=== PATIENT | female | born 1960 | race Caucasian/White ===

== ENCOUNTER 2016-07-07 20:45 | Inpatient (IN) | payer OTHER ==
[~2016-07-07] VITALS: Ht 261.6 cm; Wt 71.3 kg
[~2016-07-07 20:45] MED LIST: ALBU0.08 NEB; AMBI10TA PO; ATEN25TA PO; ATOR40TA16 PO; BUSP10TA PO; CYCL1TAB29 PO; DICL1GEL TOPICAL; DIVA250T PO; DULO1CAP2 PO; GABA300C5 PO; HYDR-3366 PO; LEVO88TA2 PO; OMEP20TA PO; POTA10TA8 PO; ROPI0.5T PO; TOPI1TAB31 PO; VENTAER INH
[2016-07-07 20:48] VITALS: BP 113/82; PULSE 89; RESP 18; TEMP 97.7; O2SAT 96
[2016-07-07 20:50] VITALS: BP_SYST 113; BP_SYST 121; BP_DIAS 80; BP_DIAS 82
[2016-07-07 20:57] VITALS: RESP 18; O2SAT 97
[2016-07-07] MEDS ORDERED: SODIUM CHLORIDE 0.9% FLUSH 5 ML FLUSH IVF PRN ×3 (21:00→23:45)
--- NOTE | 2016-07-07 21:07 | PD ---
HPI Chief Complaint: Chest Pain Time Seen by Provider: 20:52 Travel History International Travel<30 days: No Contact w/Intl Traveler<30days: No Traveled to known affect area: No History of Present Illness HPI 56-year-old female presents to the emergency department by EMS transport from home for evaluation of chest pain and possible seizure. According the patient is able to relate most of her own history she does have a seizure disorder but this evening prior to arrival to the emergency department she was experiencing retrosternal chest pressure 9/10 in intensity nonradiating to the neck jaw back shoulder or arms or abdomen without associated nausea vomiting sweats or shortness of breath. Patient states that because of the discomfort she had decided to go and lay down on her bed and noted that upon resting she started to have some tremor typical of seizure activity for her and then reports that she found herself laying facedown on the carpeted floor in her room next to her bed with her turning her over onto her back. Patient did not have any tongue trauma and had no bladder or bowel incontinence. Patient states that she was able to recognize her but was not able to be conversant for approximately 15-20 minutes. Upon EMS arrival due to her ongoing chest discomfort aspirin 162 mg was administered along with nitroglycerin sublingual sprays 2 which has decreased her chest discomfort to 6/10 in intensity. Patient does not complain of any headache visual disturbance speech disturbance has chronic neck pain and is scheduled to have outpatient MRI in the near future no shortness of breath no chest wall pain no rib pain or pleuritic pain no abdominal pain no upper or lower back pain no pelvic or extremity pain at this time; no new upper or lower extremity numbness tingling or weakness. Patient denies previous history of chest pain. Patient does have history of CVA with mild right upper extremity and right lower extremity residual weakness 2 years ago and uses a cane to assist ambulation, seizure disorder, hypertension , COPD, hypothyroidism, chronic pain syndrome, bipolar disorder, and migraines. PFSH Past Medical History Narrative Medical CVA, seizure disorder, hypertension, COPD, hypothyroidism, chronic pain syndrome , bipolar disorder, migraines; hysterectomy tonsillectomy; tobacco use; nursing notes reviewed Hx Anticoagulant Therapy: Yes (ASA) Arthritis: Yes Asthma: Yes Autoimmune Disease: No Bipolar Disorder: Yes Anxiety: Yes Depression: Yes Heart Rhythm Problems: No Cancer: No Cardiovascular Problems: Yes High Cholesterol: No Chemotherapy: No Chest Pain: No Congestive Heart Failure: No COPD: Yes Cerebrovascular Accident: Yes Diabetes: No Diminished Hearing: No Endocrine: No GERD: No Genitourinary: No Headaches: Yes Hepatitis: No Hiatal Hernia: No Herniated Disk: Yes Hypertension: Yes Immune Disorder: No Insomnia: Yes Kidney Stones: No Musculoskeletal: Yes (spasms in legs) Neurologic: Yes (SEIZURES, NUMBNESS IN FINGERS AND R LEG ) Psychiatric: Yes Reproductive: No Respiratory: Yes Migraines: Yes Radiation Therapy: No Renal Failure: No Seizures: Yes (Currently taking tegretol) Sickle Cell Disease: No Sleep Apnea: Yes Thyroid Disease: Yes Ulcer: No ?: Not : 5 Para: 5 Past Surgical History Abdominal Surgery: No AICD: No Arteriovenous Shunt: No Cardiac Surgery: No Ear Surgery: No Endocrine Surgery: No Eye Surgery: No Genitourinary Surgery: No Gynecologic Surgery: Yes Hysterectomy: Yes Insulin Pump: No Joint Replacement: No Pacemaker: No Thoracic Surgery: No Tonsillectomy: Yes Other Surgery: Yes (Hysterectomy - 27 years ago) Social History Alcohol Use: No Tobacco Use: Yes (1PPD) Substance Use: Yes Allergies-Medications (Allergen,Severity, Reaction): Coded Allergies: No Known Allergies (Unverified , 07/07/16) Reported Meds & Prescriptions Reported Meds & Active Scripts Active Buspirone (Buspirone HCl) 10 Mg Tab 10 Mg PO BID Duloxetine DR (Duloxetine HCl) 30 Mg Capdr 30 Mg PO BID Atenolol 25 Mg Tab 25 Mg PO DAILY Gabapentin 300 Mg Cap 300 Mg PO TID Levothyroxine (Levothyroxine Sodium) 88 Mcg Tab 88 Mcg PO DAILY Ambien (Zolpidem Tartrate) 10 Mg Tab 10 Mg PO HS PRN Omeprazole 20 Mg Tab 20 Mg PO DAILY Flexeril (Cyclobenzaprine HCl) 10 Mg Tab 10 Mg PO TID Voltaren Topical (Diclofenac Topical) 1% Gel 1 Applic TOPICAL TID Apply to affected area Atorvastatin (Atorvastatin Calcium) 40 Mg Tab 40 Mg PO HS Ventolin Hfa 18 GM Inh (Albuterol Sulfate) 90 Mcg/Act Aer 2 Puff INH Q4-6H PRN Albuterol Neb (Albuterol Sulfate) 2.5 Mg/3 Ml Neb 2.5 Mg NEB QID NEB Reported Diclofenac Topical 1% Gel 1 Applic TOPICAL BID Divalproex DR (Divalproex Sodium) 250 Mg Tabdr 250 Mg PO TID Topiramate 100 Mg Tab 100 Mg PO BID Ropinirole 0.5 Mg Tab 0.5 Mg PO TID Potassium Chloride CR (Potassium Chloride) 10 Meq Tab 20 Meq PO DAILY Bittinger (Hydrocodone-Acetaminophen) 10-325 Mg Tab 1 Tab PO TID PRN Review of Systems Except as stated in HPI: all other systems reviewed are Neg General / Constitutional: No: Fever, Chills Eyes: No: Visual changes HENT: Positive: Neck Pain (chronic), No: Headaches Cardiovascular: Positive: Chest Pain or Discomfort, Syncope, No: Diaphoresis, Edema Respiratory: No: Shortness of Breath, Pleuritic Pain Gastrointestinal: No: Nausea, Vomiting, Abdominal Pain Genitourinary: No: Flank Pain Musculoskeletal: No: Myalgias, Arthralgias Skin: No Rash Neurologic: Positive: Weakness, Syncope, Focal Abnormalities (chronic mild rue/ rle weakness, cane use), Seizures, No: Dizziness, Headache, Change in Mentation , Slurred Speech, Paresthesia, Incontinence Psychiatric: No: Anxiety Endocrine: No: Heat Intolerance Hematologic/Lymphatic: No: Easy Bruising Physical Exam Narrative GENERAL: Well-developed well-nourished female in acute distress no respiratory distress SKIN: Warm and dry. HEAD: Atraumatic. Normocephalic. Scalp nontender to direct palpation no soft tissue swelling or abrasion laceration or bony abnormalities. EYES: Pupils equal and round. No scleral icterus. No injection or drainage. ENT: No nasal bleeding or discharge. Mucous membranes pink and moist. NECK: Trachea midline. No JVD. Mild tenderness to direct palpation along the right para cervical musculature no point tenderness to direct palpation along the cervical spine no bony step-off. CARDIOVASCULAR: Regular rate and rhythm. RESPIRATORY: No accessory muscle use. Clear to auscultation. Breath sounds equal bilaterally. GASTROINTESTINAL: Abdomen soft, non-tender, nondistended. Hepatic and splenic margins not palpable. MUSCULOSKELETAL: Extremities without clubbing, cyanosis, or edema. No obvious deformities. NEUROLOGICAL: Awake and alert. No obvious cranial nerve deficits. Motor grossly within normal limits. Five out of 5 muscle strength in the arms and legs. Normal speech. PSYCHIATRIC: Appropriate mood and affect; insight and judgment normal. Data Data Last Documented VS Vital Signs Date Time Temp Pulse Resp B/P Pulse Ox O2 Delivery O2 Flow Rate FiO2 07/07/16 22:00 70 18 124/79 96 Room Air 07/07/16 20:48 97.7 Orders Electrocardiogram (07/07/16 20:52) Ckmb (Isoenzyme) Profile (07/07/16 20:52) Complete Blood Count With Diff (07/07/16 20:52) Comprehensive Metabolic Panel (07/07/16 20:52) Magnesium (Mg) (07/07/16 20:52) Prothrombin Time / Inr (Pt) (07/07/16 20:52) Act Partial Throm Time (Ptt) (07/07/16 20:52) Troponin I (07/07/16 20:52) Lipase (07/07/16 20:52) Chest, Single Ap (07/07/16 20:52) Ecg Monitoring (07/07/16 20:52) Bilateral Bp Monitoring (07/07/16 20:52) Iv Access Insert/Monitor (07/07/16 20:52) Oximetry (07/07/16 20:52) Oxygen Administration (07/07/16 20:52) Sodium Chloride 0.9% Flush (Ns Flush) (07/07/16 21:00) Ct Brain W/O Iv Contrast(Rout) (07/07/16 ) Ct Cerv Spine W/O Contrast (07/07/16 ) Valproic Acid (Depakene) (07/07/16 20:52) ^ Seizure Precautions (07/07/16 20:52) Nitroglycerin Sl (Nitrostat Sl) (07/07/16 22:00) Morphine Inj (Morphine Inj) (07/07/16 22:00) Ondansetron Inj (Zofran Inj) (07/07/16 22:00) Sodium Chlorid 0.9% 500 Ml Inj (Ns 500 M (07/07/16 22:00) Sodium Chlor 0.9% 1000 Ml Inj (Ns 1000 M (07/07/16 22:00) Acetaminophen (Tylenol) (07/07/16 22:00) CKMB (07/07/16 20:55) CKMB% (07/07/16 20:55) Labs Laboratory Tests Test 07/07/16 20:55 White Blood Count 10.1 TH/MM3 Red Blood Count 4.03 MIL/MM3 Hemoglobin 13.1 GM/DL Hematocrit 38.4 % Mean Corpuscular Volume 95.4 FL Mean Corpuscular Hemoglobin 32.5 PG Mean Corpuscular Hemoglobin 34.1 % Concent Red Cell Distribution Width 13.7 % Platelet Count 317 TH/MM3 Mean Platelet Volume 9.5 FL Neutrophils (%) (Auto) 44.2 % Lymphocytes (%) (Auto) 45.0 % Monocytes (%) (Auto) 8.3 % Eosinophils (%) (Auto) 1.7 % Basophils (%) (Auto) 0.8 % Neutrophils # (Auto) 4.5 TH/MM3 Lymphocytes # (Auto) 4.5 TH/MM3 Monocytes # (Auto) 0.8 TH/MM3 Eosinophils # (Auto) 0.2 TH/MM3 Basophils # (Auto) 0.1 TH/MM3 CBC Comment DIFF FINAL Differential Comment Prothrombin Time 10.2 SEC Prothromb Time International 0.9 RATIO Ratio Activated Partial 28.3 SEC Thromboplast Time Sodium Level 139 MEQ/L Potassium Level 3.7 MEQ/L Chloride Level 107 MEQ/L Carbon Dioxide Level 23.8 MEQ/L Anion Gap 8 MEQ/L Blood Urea Nitrogen 11 MG/DL Creatinine 0.80 MG/DL Estimat Glomerular Filtration 74 ML/MIN Rate Random Glucose 84 MG/DL Calcium Level 8.7 MG/DL Magnesium Level 2.2 MG/DL Total Bilirubin 0.2 MG/DL Aspartate Amino Transf 13 U/L (AST/SGOT) Alanine Aminotransferase 19 U/L (ALT/SGPT) Alkaline Phosphatase 80 U/L Total Creatine Kinase 148 U/L Creatine Kinase MB 2.6 NG/ML Troponin I LESS THAN 0.02 NG/ML Total Protein 7.9 GM/DL Albumin 3.7 GM/DL Lipase 148 U/L Valproic Acid (Depakene) Level 39 MCG/ML MDM Medical Decision Making Medical Screen Exam Complete: Yes Emergency Medical Condition: Yes Medical Record Reviewed: Yes Interpretation(s) EKG: EKG: Normal sinus rhythm rate [address] elevation or injury pattern change nonspecific T-wave inversion V1-V2 Differential Diagnosis Chest pain, ACS, ND, musculoskeletal pain, pleurisy, esophageal spasm, biliary colic, pancreatitis, PE, arrhythmia, electronic disturbance, subtherapeutic anticonvulsant therapy Narrative Course Patient placed on cardiac monitor technician IV access obtained specimens collected and sent for resulting patient has received to supplement will nitroglycerin sprays and aspirin 162 mg Patient administered additional sublingual nitroglycerin as well as Zofran 4 mg IV along with morphine sulfate 2 mg IV Patient complains of migrainous type headache patient does have history of migraines was having headache prior to onset aforementioned symptoms of presentation and patient administered acetaminophen At 9:50 PM patient's spouse is at bedside he was at home with the patient this evening when chest pain and syncopal episode occurred. did not witness patient having any seizure activity. did note that she had been away from him for approximately 5 minutes after arriving home with complaint of retrosternal chest pressure and found the patient on the floor at the bedside facedown. No seizure activity was occurring at the time. When he rolled her over she was reportedly unresponsive and he thought that she was not breathing so started to administer [id number] resuscitation and chest compressions. Patient states he did this for short while EMS was called and upon EMS arrival patient was just starting to awaken and talk but had not had any verbal communication or did not appear to recognize them prior to this. At 10:37 PM labs resulted CK and troponin I values not elevated; valproic acid level is subtherapeutic at 37; patient given evening dose of her Topamax and valproic acid. Physician Communication Physician Communication call placed to Diagnosis Primary Impression: Chest pain Additional Impressions: Syncope Qualified Code: R55 - Syncope, unspecified syncope type H/O tonic-clonic seizures Admitting Information Admitting Physician Requests: Admit Nery Loya MD Jul 07, 2016 21:07
[2016-07-07] MEDS ORDERED: DICL1GEL7 TOPICAL (21:39)
[2016-07-07 21:52] LABS: AUTOMATED NEUTROPHIL # 4.5 TH/MM3 (1.8-7.7); BASOPHIL # 0.1 TH/MM3 (0-0.2); BASOPHIL % 0.8 % (0.0-2.0); EOSINOPHIL # 0.2 TH/MM3 (0-0.4); EOSINOPHIL % 1.7 % (0.0-4.0); HEMATOCRIT 38.4 % (35.0-46.0); HEMO FLAGS DIFF FINAL; LYMPHOCYTE # 4.5 TH/MM3 (1.0-4.8); MEAN CELL VOLUME 95.4 FL (80.0-100.0); MEAN CORPUSCULAR HEMOGLOBIN 32.5 PG (27.0-34.0); MEAN CORPUSCULAR HGB CONC 34.1 % (32.0-36.0); MONO % 8.3 % (0.0-8.0); NEUT % 44.2 % (16.0-70.0); PLATELET COUNT 317 TH/MM3 (150-450); RED BLOOD COUNT 4.03 MIL/MM3 (4.00-5.30); RED CELL DISTRIBUTION WIDTH 13.7 % (11.6-17.2); WHITE BLOOD COUNT 10.1 TH/MM3 (4.0-11.0)
--- NOTE | 2016-07-07 21:59 | RADRPT ---
EXAM DATE/TIME: 07/07/2016 21:22 [facility] COMPARISON: CT BRAIN W/O CONTRAST, September 22, 2015, 22:02. INDICATIONS : Seizure along with fall. RADIATION DOSE: 56.35 CTDIvol (mGy) MEDICAL HISTORY : Seizures. SURGICAL HISTORY : None. ENCOUNTER: Initial ACUITY: 1 day PAIN SCALE: 3/10 LOCATION: cranial TECHNIQUE: Multiple contiguous axial images were obtained of the head. Using automated exposure control and adj ustment of the mA and/or kV according to patient size, radiation dose was kept as low as reasonably a chievable to obtain optimal diagnostic quality images. FINDINGS: There is no evidence for intracranial hemorrhage, mass effect, mass lesions, edema, or extra-axial fl uid collections. The visualized bony structures appear intact. The ventricles are normal size for t he patient's age. There are no signs of acute infarction for technique. CONCLUSION: Unremarkable study. Becky Gaines MD on July 07, 2016 at 21:56 Board Certified Radiologist. This report was verified electronically.
[2016-07-07 22:00] VITALS: BP 124/79; PULSE 70; RESP 18; O2SAT 96
[2016-07-07] MEDS ORDERED: SODIUM CHLORID 0.9% 500 ML INJ 500 ML IV ONE (22:00)
[2016-07-07] MEDS ORDERED: NITROGLYCERIN 0.4 MG SL 25 TABS/BTL SL ONE (22:00)
[2016-07-07] MEDS ORDERED: MORPHINE SULFATE 4 MG/ML INJ IV PUSH ONE (22:00)
[2016-07-07] MEDS ORDERED: ONDANSETRON HCL 4 MG/2 ML VIAL IV PUSH ONE (22:00)
[2016-07-07] MEDS ORDERED: ACETAMINOPHEN 325 MG TAB PO ONE (22:00)
[2016-07-07 22:01] LABS: APTT (PATIENT) 28.3 SEC (24.3-30.1); INTERNATIONAL NORMALIZED RATIO 0.9 RATIO; PROTHROMBIN TIME - PATIENT 10.2 SEC (9.8-11.6)
--- NOTE | 2016-07-07 22:02 | RADRPT ---
EXAM DATE/TIME: 07/07/2016 21:24 [facility] COMPARISON: No previous studies available for comparison. INDICATIONS : Seizure along with fall. RADIATION DOSE: 32.07 CTDIvol (mGy) MEDICAL HISTORY : Seizures. SURGICAL HISTORY : None. ENCOUNTER: Initial ACUITY: 1 day PAIN SCALE: 3/10 LOCATION: neck TECHNIQUE: Volumetric scanning of the cervical spine was performed. Multiplanar reconstructions in the sagittal, coronal and oblique axial planes were performed. Using automated exposure control and adjustment o f the mA and/or kV according to patient size, radiation dose was kept as low as reasonably achievable to obtain optimal diagnostic quality images. FINDINGS: No significant subluxation or soft tissue swelling is seen. No definite fracture is seen for techniqu e. C2-C3: No appreciable compromised to the thecal sac, exiting nerve roots are seen. The neural yolis ntaan are patent bilaterally. No appreciable thecal sac stenosis is seen. C3-C4: There is slight neural foramina compromise on the left due to asymmetrical bulging disc and h ypertrophic changes. C4-C5: Mild central disc protrusion is present without any significant compromise to the thecal sac or the exiting nerve roots. C5-C6: No appreciable compromised to the thecal sac, exiting nerve roots are seen. The neural yolis natan are patent bilaterally. No appreciable thecal sac stenosis is seen. C6-C7: No appreciable compromised to the thecal sac, exiting nerve roots are seen. The neural yolis natan are patent bilaterally. No appreciable thecal sac stenosis is seen. C7-T1: No appreciable compromised to the thecal sac, exiting nerve roots are seen. The neural yolis natan are patent bilaterally. No appreciable thecal sac stenosis is seen CONCLUSION: Slight neural foramina compromise left C3-4. KEmma Gaines MD on July 07, 2016 at 21:57 Board Certified Radiologist. This report was verified electronically.
--- NOTE | 2016-07-07 22:06 | RADRPT ---
EXAM DATE/TIME: 07/07/2016 21:39 [facility] COMPARISON: CHEST PA & LAT, November 27, 2013, 8:34. INDICATIONS : Patient had a seizure this afternoon. She also was having chest pain. MEDICAL HISTORY : Hypertension. Chronic obstructive pulmonary disease. Asthma. SURGICAL HISTORY : None. ENCOUNTER: Initial ACUITY: 1 day PAIN SCORE: 0/10 LOCATION: chest FINDINGS: The lungs are clear without infiltrate, nodule, or mass. There is no appreciable pleural effusion fo r technique. Heart and mediastinum are unremarkable. CONCLUSION: No acute cardiopulmonary disease. Becky Gaines MD on July 07, 2016 at 22:04 Board Certified Radiologist. This report was verified electronically.
[2016-07-07 22:21] LABS: ANION GAP 8 MEQ/L (5-15); AST (GOT) 13 U/L (15-37); BICARBONATE 23.8 MEQ/L (21.0-32.0); BLOOD UREA NITROGEN 11 MG/DL (7-18); CHLORIDE 107 MEQ/L (98-107); GLOMERULAR FILTRATION RATE 74 ML/MIN (>89); MAGNESIUM 2.2 MG/DL (1.5-2.5); POTASSIUM 3.7 MEQ/L (3.5-5.1); SODIUM (NA) 139 MEQ/L (136-145)
[2016-07-07 22:24] LABS: ALKALINE PHOSPHATASE 80 U/L (45-117); ALT (GPT) 19 U/L (10-53); CREATINE KINASE 148 U/L (26-192); TOTAL BILIRUBIN ADULT 0.2 MG/DL (0.2-1.0)
[2016-07-07 22:37] LABS: CKMB 2.6 NG/ML (0.5-3.6)
[2016-07-07] MEDS: SODIUM CHLOR 0.9% 1000 ML INJ 1,000 ML IV SCH (22:45)
[2016-07-07] MEDS ORDERED: TOPIRAMATE 100 MG TAB PO ONE (22:45)
[2016-07-07] MEDS ORDERED: DIVALPROEX SODIUM DELAYED RELEASE 250 MG TAB PO ONE (22:45)
--- NOTE | 2016-07-07 23:43 | HHI.HP ---
[facility] Service Family Medicine Primary Care Physician Malini Eduardo MD Admission Diagnosis chest pain, syncope/seizure disorder Diagnoses: International Travel<30 Days: No Contact w/Intl Traveler<30days: No Known Affected Area: No History of Present Illness 56 year-old female with seizure disorder, history of CVA with chronic R-sided weakness, and tobacco use presents to ED with chest pain and syncopal event/suspected seizure. Reports non-radiating epigastric pain, worse with inspiration, began at 6 PM while riding in the car. Laid down at home and found her face-down in bedroom. He was concerned not breathing, called EMS, and performed short amount of chest compressions and rescue breathing. Pt reportedly confused and not speaking for 20 minutes. Denies biting tongue, bowel or bladder incontinence, focal neurological deficits, or acute injury. Epigastric pain improved after aspirin, nitroglycerin, and morphine in the ED, but still "comes and goes". Endorses occipital headache with light sensitivity that is similar to migraines she normally gets with seizures. Follows with Dr Cloud for seizure disorder, last reported seizure 4 months ago, endorses compliance with home Depakote and Topamax. Denies recent alcohol/ illicit drug use, respiratory illness, or inciting factor for seizure. However , has not been eating much lately secondary to dysphagia. Reports history of "esophageal rings" needing dilation and endorsed only had water and coffee today prior to her syncopal event. Review of Systems Constitutional: COMPLAINS OF: Weight loss Eyes: DENIES: Blurred vision, Double Vision Ears, nose, mouth, throat: DENIES: Throat pain, Running Nose Respiratory: COMPLAINS OF: Cough, Sputum production, DENIES: Wheezing, Hemoptysis, Shortness of breath Cardiovascular: COMPLAINS OF: Chest pain, Syncope, DENIES: Lower Extremity Edema Gastrointestinal: COMPLAINS OF: Constipation, Difficulty Swallowing, DENIES: Abdominal pain, Black stools, Nausea, Vomiting Genitourinary: DENIES: Urgency, Hematuria, Dysuria Musculoskeletal: COMPLAINS OF: Back pain, Neck pain Neurologic: COMPLAINS OF: Headache, Poor Balance, DENIES: Seizures Psychiatric: COMPLAINS OF: Anxiety, Mood changes, Depression Past Family Social History Past Medical History Graves Disease- now Hypothyroidism Bipolar depression Anxiety Chronic neck/back pain (DDD)- Lumbar Radiculopathy from neural impingement HTN COPD Insomnia Chronic headaches Seizures: sees Dr. Cloud Past Surgical History Hysterectomy Tonsillectomy Back surgery 12/2015 (L4/L5 TLIF with cage and pedicle screw fixation) Reported Medications Buspirone (Buspirone HCl) 10 Mg Tab 10 Mg PO BID Duloxetine DR (Duloxetine HCl) 30 Mg Capdr 30 Mg PO BID Atenolol 25 Mg Tab 25 Mg PO DAILY Gabapentin 300 Mg Cap 300 Mg PO TID Levothyroxine (Levothyroxine Sodium) 88 Mcg Tab 88 Mcg PO DAILY Ambien (Zolpidem Tartrate) 10 Mg Tab 10 Mg PO HS PRN Omeprazole 20 Mg Tab 20 Mg PO DAILY Flexeril (Cyclobenzaprine HCl) 10 Mg Tab 10 Mg PO TID Voltaren Topical (Diclofenac Topical) 1% Gel 1 Applic TOPICAL TID Apply to affected area Atorvastatin (Atorvastatin Calcium) 40 Mg Tab 40 Mg PO HS Ventolin Hfa 18 GM Inh (Albuterol Sulfate) 90 Mcg/Act Aer 2 Puff INH Q4-6H PRN Albuterol Neb (Albuterol Sulfate) 2.5 Mg/3 Ml Neb 2.5 Mg NEB QID NEB Reported Diclofenac Topical 1% Gel 1 Applic TOPICAL BID Divalproex DR (Divalproex Sodium) 250 Mg Tabdr 250 Mg PO TID Topiramate 100 Mg Tab 100 Mg PO BID Ropinirole 0.5 Mg Tab 0.5 Mg PO TID Potassium Chloride CR (Potassium Chloride) 10 Meq Tab 20 Meq PO DAILY Steward (Hydrocodone-Acetaminophen) 10-325 Mg Tab 1 Tab PO TID PRN Allergies: Coded Allergies: No Known Allergies (Unverified , 07/07/16) Family History Father passed from heart attack and had cancer Social History Smokes 1-2 PPD Denies alcohol use Denies illicit drug use Lives with who drives her Full code Physical Exam Vital Signs Vital Signs Date Time Temp Pulse Resp B/P Pulse Ox O2 Delivery O2 Flow Rate FiO2 07/07/16 22:00 70 18 124/79 96 Room Air 07/07/16 21:33 97 Room Air 07/07/16 20:57 18 97 Room Air 07/07/16 20:50 113/82 121/80 07/07/16 20:48 97.7 89 18 113/82 96 Physical Exam GENERAL: Adult female in no acute distress SKIN: No rashes, warm and dry HEENT: PERRL. EOMI. No nystagmus. No injection or scleral icterus. Oropharynx nonerythematous and without tonsillar exudate, erythema, or swelling. NECK: No lymphadenopathy. No tenderness to palpation of cervical spine. AROM neck full. CV: RRR. Without murmurs or gallop. RESP: Rhonchi bilaterally at lower lung guzmán. No wheezes or rales. Speaking in full sentences. Good air movement. GI: Abdomen soft, non-tender, nondistended. No HSM. No guarding. +BS MSK: Extension contracture at R knee. No peripheral edema No calf tenderness. NEURO: AAOx3. CN II-XII intact Decreased sensation to light touch in all dermatomes RUE and RLE. Decreased strength RUE and RLE compared to left. 4/5 strength deltoid, biceps, triceps, hip flexors, dorsiflexion at angle, great toe extension at left , 5/5 on R Patellar DTR 2+ left, unable to obtain R. Babinski was unsuccessful (did not produce upward or downward going toes bilaterally) Normal speech. Laboratory Laboratory Tests Test 07/07/16 20:55 White Blood Count 10.1 Red Blood Count 4.03 Hemoglobin 13.1 Hematocrit 38.4 Mean Corpuscular Volume 95.4 Mean Corpuscular Hemoglobin 32.5 Mean Corpuscular Hemoglobin 34.1 Concent Red Cell Distribution Width 13.7 Platelet Count 317 Mean Platelet Volume 9.5 Neutrophils (%) (Auto) 44.2 Lymphocytes (%) (Auto) 45.0 Monocytes (%) (Auto) 8.3 Eosinophils (%) (Auto) 1.7 Basophils (%) (Auto) 0.8 Neutrophils # (Auto) 4.5 Lymphocytes # (Auto) 4.5 Monocytes # (Auto) 0.8 Eosinophils # (Auto) 0.2 Basophils # (Auto) 0.1 CBC Comment DIFF FINAL Differential Comment Prothrombin Time 10.2 Prothromb Time International 0.9 Ratio Activated Partial 28.3 Thromboplast Time Sodium Level 139 Potassium Level 3.7 Chloride Level 107 Carbon Dioxide Level 23.8 Anion Gap 8 Blood Urea Nitrogen 11 Creatinine 0.80 Estimat Glomerular Filtration 74 Rate Random Glucose 84 Calcium Level 8.7 Magnesium Level 2.2 Total Bilirubin 0.2 Aspartate Amino Transf 13 (AST/SGOT) Alanine Aminotransferase 19 (ALT/SGPT) Alkaline Phosphatase 80 Total Creatine Kinase 148 Creatine Kinase MB 2.6 Troponin I LESS THAN 0.02 Total Protein 7.9 Albumin 3.7 Lipase 148 Valproic Acid (Depakene) Level 39 Result Diagram: 07/07/16205407/07/162054 Imaging Last Impressions Chest X-Ray 07/07/162051 Signed Impressions: Service Date/Time: July 21:39 - CONCLUSION: No acute cardiopulmonary disease. Becky Gaines MD Head CT 07/07/16 0000 Signed Impressions: Service Date/Time: , July 07, 2016 21:22 - CONCLUSION: Unremarkable study. Becky Gaines MD Cervical Spine CT 07/07/16 0000 Signed Impressions: Service Date/Time: July 21:24 - CONCLUSION: Slight neural foramina compromise left C3-4. Becky Gaines MD Assessment and Plan Assessment and Plan 56 year-old female with seizure disorder admitted 07/07/16 for chest pain and seizure. Code Status Full Discussed Condition With SDW: Dr. Arita Problem List: (1) Seizure Status: Acute Plan: Found face-down by in home after syncopal event/suspected seizure. History of seizure disorder, controlled with Depakote and Topamax. Last seizure 4 months ago. Differential: seizure secondary to non-compliance with medications vs subtherapeutic dosing anticonvulsants vs pseudoseizure vs illicit drug use vs alcohol vs infection (lung vs bladder) CBC and CMP grossly within normal limits Imaging: CT head: unremarkable CT C-spine: slightly neural foramina compromise L C3-C4 CXR: no acute cardiopulmonary disease Plan -Admit to inpatient under Dr. Serrano/HEIDI, PCP Dr. Eduardo. -Neurology consult, known to Dr. Cloud -Request recommendations for medication titration and any further necessary testing -EEG pending -UDS, U/A, and ethyl alcohol level pending -Anticonvulsants -Continue home Depakote 250mg PO TID -Continue home Topiramate 100mg PO BID -Subtherapeutic Depakote on admission (37), repeat level in AM -Lorazepam 2mg IV PRN uncontrolled seizure -Supportive Care --Bedside swallow pending, PT/OT consulted -Vitals q4h, Neurochecks q4h, Bed Rest, seizure precautions -Monitor I/Os, Daily weights, pulse oximetry, O2 supplementation to maintain O2 saturation 88-92% (hx COPD) (2) Chest pain Status: Acute Plan: Intermittent non-radiating epigastric pain presented while patient sitting in car. Worse with inspiration. Improved, but not fully eliminated s/p aspirin and nitrogen in ED. Pt reports recently worsening dysphagia and history of "esophageal rings" with dilation Of note, pt reported doing chest compressions when he found her down. Patient reports hx two heart attacks, no Q-waves appreciated on EKG. Not on home anticoagulation. Differential: GERD vs ACS vs costochondritis vs PNA vs pneumothorax vs aortic dissection Plan -ACS rule out -Trops, CPK, EKG at 9pm, 3am, 9am -Trop/CPK neg x1 -EKG: Normal sinus rhythm, no ST elevations or depressions, no T-wave changes , no Q waves -Continuous telemetry -Treat GERD -Continue home omeprazole 20mg PO daily for GERD -Mylanta x1 (3) Chronic headache Status: Acute Plan: Coincides with seizures. Headache on admission, improved s/p morphine in ED -Continue Topiramate (see plan seizure) -Tylenol 650mg q6h PRN headache or fever > 100.4 (4) Contracture of multiple joints Status: Acute Plan: Chronic R-sided contracture s/p stroke, especially R lower extremity -Continue Flexeril 10mg PO TID -Continue Ropinirole 0.5mg PO TID (5) Hypokalemia Status: Acute Plan: K within normal limits on admission -Continue home 20ng KCl mEq daily -Trend potassium (6) Hypertension Status: Acute Plan: -Continue atenolol 25mg PO daily (7) Hyperlipidemia Status: Acute Plan: -Continue Atorvastatin 40mg daily -Lipid panel in AM (8) COPD (chronic obstructive pulmonary disease) Status: Acute Plan: -Hold home Albuterol inhaler and Albuterol NEB. 1-2 PPD. -Duonebs q4h PRN shortness of breath -Smoking cessation counseling provided -Nicotine patch contraindicated while chest pain/ACS rule out in light of vasoconstrictive effects (9) Low back pain Status: Acute Plan: -Hold home Voltaren gel -Continue home Steward 10-325mg q8h PRN pain 5-10 -Add Miralax daily for bowel regimen- last BM two days ago (10) Numbness and tingling in hands Status: Acute Plan: -Continue Gabapentin 300mg PO TID (11) Hypothyroidism Status: Acute Plan: -Continue Levothyroxine 88mcg PO daily -TSH pending (12) Weight loss, unintentional Status: Acute Plan: History of GERD and Hx Graves, now hypothyroidism, on supplementation. Saw PCP for this issue morning of admission. Hep C panel ordered outpatient, not yet completed -Hep C panel pending (13) Bipolar disorder Status: Acute Plan: MDD/Bipolar disorder -Continue Duloxetine 30mg BID (14) Anxiety Status: Acute Plan: -Continue home Buspirone 10mg PO BID (15) Insomnia Status: Acute Plan: -Continue Ambien 10mg PO HS PRN insomnia (16) Fluid, Electrolytes, Nutrition, Prophylaxis Status: Acute Plan: Fluids: encourage PO hydration Electrolytes: monitor and repleted as necessary, continue home potassium supplementation Nutrition: Heart healthy diet DVT prophylaxis: SCDs GI prophylaxis: not indicated, continue home Protonix for GERD Physician Certification 2 Midnight Certification Type: Admission for Inpatient Services Order for Inpatient Services The services are ordered in accordance with Medicare regulations or non- Medicare payer requirements, as applicable. In the case of services not specified as inpatient-only, they are appropriately provided as inpatient services in accordance with the 2-midnight benchmark. Estimated LOS (days): 2 days is the estimated time the patient will need to remain in the hospital, assuming treatment plan goals are met and no additional complications. Post-Hospital Plan: Home Ivonne Renner MD R1 Jul 07, 2016 23:43
[2016-07-07] MEDS ORDERED: ACETAMINOPHEN 325 MG TAB PO PRN (23:45)
[2016-07-07] MEDS: SODIUM CHLORIDE 0.9% FLUSH 5 ML FLUSH IVF SCH (23:45)
[2016-07-08] VITALS (11 sets, daily range): BP systolic 106–142; BP diastolic 55–79; PULSE 64–83; RESP 16–20; TEMP 97.4–97.8; O2SAT 6–98
[2016-07-08] MEDS: GABAPENTIN 300 MG CAP PO SCH ×4 (00:34→18:28)
[2016-07-08] MEDS: busPIRone HCL 10 MG TAB PO SCH ×3 (00:34→22:26)
[2016-07-08] MEDS: ATORVASTATIN 40 MG TAB PO SCH ×2 (00:34→22:25)
[2016-07-08] MEDS: DULoxetine HCl DR 30 MG CAP PO SCH ×3 (00:34→22:26)
[2016-07-08] MEDS: CYCLOBENZAPRINE HCL 10 MG TAB PO SCH ×4 (00:34→18:28)
[2016-07-08] MEDS ORDERED: NITROGLYCERIN 0.4 MG SL 25 TABS/BTL SL PRN (01:30)
[2016-07-08] MEDS ORDERED: ALUMINUM/MAGNESIUM/SIMETH 30 ML CUP PO ONE (02:00)
[2016-07-08] MEDS: ACETAMINOPHEN/HYDROcodone 325 MG/10 MG TAB PO PRN ×4 (02:05→22:45)
[2016-07-08] MEDS ORDERED: LORazepam 2 MG/ML VIAL IV PRN (02:15)
[2016-07-08 05:47] LABS: AUTOMATED NEUTROPHIL # 3.9 TH/MM3 (1.8-7.7); BASOPHIL # 0.1 TH/MM3 (0-0.2); BASOPHIL % 0.8 % (0.0-2.0); EOSINOPHIL # 0.2 TH/MM3 (0-0.4); EOSINOPHIL % 1.9 % (0.0-4.0); HEMATOCRIT 36.7 % (35.0-46.0); HEMO FLAGS DIFF FINAL; LYMPH % 45.4 % (9.0-44.0); MEAN CORPUSCULAR HEMOGLOBIN 32.6 PG (27.0-34.0); MEAN CORPUSCULAR HGB CONC 33.9 % (32.0-36.0); MONO % 7.4 % (0.0-8.0); NEUT % 44.5 % (16.0-70.0); PLATELET COUNT 268 TH/MM3 (150-450); RED BLOOD COUNT 3.82 MIL/MM3 (4.00-5.30); RED CELL DISTRIBUTION WIDTH 13.5 % (11.6-17.2); WHITE BLOOD COUNT 8.8 TH/MM3 (4.0-11.0)
[2016-07-08 06:51] LABS: ALKALINE PHOSPHATASE 70 U/L (45-117); ALT (GPT) 16 U/L (10-53); ANION GAP 5 MEQ/L (5-15); AST (GOT) 8 U/L (15-37); BICARBONATE 27.1 MEQ/L (21.0-32.0); BLOOD UREA NITROGEN 10 MG/DL (7-18); CHLORIDE 112 MEQ/L (98-107); GLOMERULAR FILTRATION RATE 76 ML/MIN (>89); HDL CHOLESTEROL 28.3 MG/DL (40.0-60.0); LDL CHOLESTEROL 83 MG/DL (0-99); POTASSIUM 3.7 MEQ/L (3.5-5.1); SODIUM (NA) 144 MEQ/L (136-145); TOTAL BILIRUBIN ADULT 0.2 MG/DL (0.2-1.0)
[2016-07-08 08:52] LABS: CREATINE KINASE 188 U/L (26-192)
[2016-07-08] MEDS ORDERED: SODIUM CHLORIDE 0.9% FLUSH 5 ML FLUSH IVF SCH (09:00)
[2016-07-08] MEDS: POTASSIUM CHLORIDE 10 MEQ CONTROLLED RELEASE TAB PO SCH (09:44)
[2016-07-08] MEDS: ATENOLOL 25 MG TAB PO SCH (09:44)
[2016-07-08] MEDS ORDERED: RESP: ALBUTEROL 2.5 MG/3 ML NEB (PRN) NEB (09:45)
[2016-07-08] MEDS: PANTOPRAZOLE SOD 20 MG DELAYED RELEASE TAB PO SCH (09:45)
--- NOTE | 2016-07-08 09:47 | HHI.HP ---
[facility] Service Family Medicine Primary Care Physician Malini Eduardo MD Admission Diagnosis chest pain, syncope/seizure disorder Diagnoses: (1) Seizure Diagnosis: Principal (2) Chest pain Diagnosis: Principal (3) Chronic headache Diagnosis: Principal (4) Contracture of multiple joints Diagnosis: Secondary (5) Hypokalemia Diagnosis: Principal (6) Hypertension Diagnosis: Principal (7) Hyperlipidemia Diagnosis: Principal (8) COPD (chronic obstructive pulmonary disease) Diagnosis: Principal (9) Low back pain Diagnosis: Principal (10) Numbness and tingling in hands Diagnosis: Principal (11) Hypothyroidism Diagnosis: Principal (12) Weight loss, unintentional Diagnosis: Principal (13) Bipolar disorder Diagnosis: Principal (14) Anxiety Diagnosis: Principal (15) Insomnia Diagnosis: Principal (16) Fluid, Electrolytes, Nutrition, Prophylaxis Diagnosis: Principal International Travel<30 Days: No Contact w/Intl Traveler<30days: No Known Affected Area: No History of Present Illness Ms Ivory is a 56 year-old female with seizure disorder, history of CVA with chronic R-sided weakness, and tobacco use who presented to the ED with chest pain and syncopal event with a seizure. Reports non-radiating epigastric pain, worse with inspiration, began at 6 PM while riding in the car. She stated she "can tell when she's going to have a seizure" as she has a recognizable prodrome. She laid down at home and found her face-down in bedroom on the floor. He was concerned she was not breathing, called EMS, and performed short amount of chest compressions and rescue breathing on his own without the ambulance being there. Pt reportedly confused and not speaking for 20 minutes after her seizure. Denies biting tongue, bowel or bladder incontinence, focal neurological deficits, or acute injury. She remembers feeling like she was about o have her seizure and lying down then she "was shaking all over and could not speak" and then lost consciousness which is similar to past seizures. It is unclear that she was having respiratory problems vs just her respiratory pattern with her seizure. She did wake up afterwards and remembers the later events and is back to normal with no seizures here in the ED. Epigastric pain improved after aspirin, nitroglycerin, and morphine in the ED, but still "comes and goes". Endorses occipital headache with light sensitivity that is similar to migraines she normally gets with seizures. Follows with Dr Cloud for seizure disorder, last reported seizure 4 months ago, endorses compliance with home Depakote and Topamax. Denies recent alcohol/ illicit drug use, respiratory illness, or inciting factor for seizure. However , has not been eating much lately secondary to dysphagia. Reports history of "esophageal rings" needing dilation and endorsed only had water and coffee prior to her syncopal event. She is very hungry now and requests normal food for breakfast. She is complaining of her chronic pain as well as the headache this am. Her troponins were unremarkable. Review of Systems Constitutional: COMPLAINS OF: Weight loss, DENIES: Change in appetite Ears, nose, mouth, throat: DENIES: Nasal discharge, Throat pain, Running Nose, Sinus Pain Respiratory: DENIES: Apneas, Sputum production, Shortness of breath Cardiovascular: DENIES: Chest pain, Dyspnea on Exertion Gastrointestinal: COMPLAINS OF: Abdominal pain, Difficulty Swallowing, DENIES : Nausea, Vomiting Integumentary: DENIES: Rash Neurologic: COMPLAINS OF: Abnormal gait (was able to walk with PT today), Seizures, DENIES: Paresthesias Other Constitutional: COMPLAINS OF: Weight loss Eyes: DENIES: Blurred vision, Double Vision Ears, nose, mouth, throat: DENIES: Throat pain, Running Nose Respiratory: COMPLAINS OF: Cough, Sputum production, DENIES: Wheezing, Hemoptysis, Shortness of breath Cardiovascular: COMPLAINS OF: Chest pain, Syncope, DENIES: Lower Extremity Edema Gastrointestinal: COMPLAINS OF: Constipation, Difficulty Swallowing, DENIES: Abdominal pain, Black stools, Nausea, Vomiting Genitourinary: DENIES: Urgency, Hematuria, Dysuria Musculoskeletal: COMPLAINS OF: Back pain, Neck pain Neurologic: COMPLAINS OF: Headache, Poor Balance, Seizures Psychiatric: COMPLAINS OF: Anxiety, Mood changes, Depression Past Family Social History Past Medical History Graves Disease- now Hypothyroidism Bipolar depression Anxiety Chronic neck/back pain (DDD)- Lumbar Radiculopathy from neural impingement HTN COPD Insomnia Chronic headaches Seizures: sees Dr. Cloud Past Surgical History Hysterectomy Tonsillectomy Back surgery 12/2015 (L4/L5 TLIF with cage and pedicle screw fixation) Allergies: Coded Allergies: No Known Allergies (Unverified , 07/07/16) Family History Father passed from heart attack and had cancer Social History Smokes 1-2 PPD Denies alcohol use Denies illicit drug use Lives with who drives her. She does not drive or swim alone or use dangerous equipment alone Full code Physical Exam Vital Signs Vital Signs Date Time Temp Pulse Resp B/P Pulse Ox O2 Delivery O2 Flow Rate FiO2 07/08/16 09:41 97.8 83 20 117/73 96 Room Air 07/08/16 06:00 74 16 117/61 97 Room Air 07/08/16 01:58 67 16 118/71 98 Room Air 07/08/16 01:00 64 18 128/71 97 Room Air 07/07/16 22:00 70 18 124/79 96 Room Air 07/07/16 21:33 97 Room Air 07/07/16 20:57 18 97 Room Air 07/07/16 20:50 113/82 121/80 07/07/16 20:48 97.7 89 18 113/82 96 Physical Exam GENERAL: Adult female in no acute distress able to ambulate well with PT and speaking clearly and fluently SKIN: No rashes, warm and dry HEENT: PERRL. EOMI. No nystagmus. No injection or scleral icterus. Oropharynx nonerythematous and without tonsillar exudate, erythema, or swelling. NECK: No lymphadenopathy. No tenderness to palpation of cervical spine. AROM neck full. CV: RRR. Without murmurs or gallop. RESP: No wheezes or rales. Speaking in full sentences. Good air movement. GI: Abdomen soft, non-tender, nondistended. No HSM. No guarding. +BS MSK: Extension contracture at R knee noted on admission, not severe. No peripheral edema No calf tenderness. NEURO: AAOx3. CN II-XII intact done on admission Decreased sensation to light touch in all dermatomes RUE and RLE. Decreased strength RUE and RLE compared to left. 4/5 strength deltoid, biceps, triceps, hip flexors, dorsiflexion at angle, great toe extension at left , 5/5 on R Patellar DTR 2+ left, unable to obtain R. Babinski was unsuccessful (did not produce upward or downward going toes bilaterally) Normal speech. Laboratory Laboratory Tests Test 07/07/16 07/08/16 20:55 05:21 Prothrombin Time 10.2 Prothromb Time International 0.9 Ratio Activated Partial 28.3 Thromboplast Time Sodium Level 139 144 Potassium Level 3.7 3.7 Chloride Level 107 112 Carbon Dioxide Level 23.8 27.1 Blood Urea Nitrogen 11 10 Creatinine 0.80 0.79 Random Glucose 84 125 Calcium Level 8.7 8.0 Magnesium Level 2.2 Total Bilirubin 0.2 0.2 Aspartate Amino Transf 13 8 (AST/SGOT) Alanine Aminotransferase 19 16 (ALT/SGPT) Alkaline Phosphatase 80 70 Total Protein 7.9 6.6 Albumin 3.7 3.1 White Blood Count 10.1 8.8 Red Blood Count 4.03 3.82 Hemoglobin 13.1 12.4 Hematocrit 38.4 36.7 Mean Corpuscular Volume 95.4 96.0 Mean Corpuscular Hemoglobin 32.5 32.6 Mean Corpuscular Hemoglobin 34.1 33.9 Concent Red Cell Distribution Width 13.7 13.5 Platelet Count 317 268 Mean Platelet Volume 9.5 8.9 Neutrophils (%) (Auto) 44.2 44.5 Lymphocytes (%) (Auto) 45.0 45.4 Monocytes (%) (Auto) 8.3 7.4 Eosinophils (%) (Auto) 1.7 1.9 Basophils (%) (Auto) 0.8 0.8 Neutrophils # (Auto) 4.5 3.9 Lymphocytes # (Auto) 4.5 4.0 Monocytes # (Auto) 0.8 0.7 Eosinophils # (Auto) 0.2 0.2 Basophils # (Auto) 0.1 0.1 CBC Comment DIFF FINAL DIFF FINAL Differential Comment Anion Gap 8 5 Estimat Glomerular Filtration 74 76 Rate Total Creatine Kinase 148 188 Creatine Kinase MB 2.6 4.0 Troponin I LESS THAN 0.02 LESS THAN 0.02 Lipase 148 Valproic Acid (Depakene) Level 39 41 Ethyl Alcohol Level LESS THAN 3 Triglycerides Level 237 Cholesterol Level 159 LDL Cholesterol 83 HDL Cholesterol 28.3 Cholesterol/HDL Ratio 5.61 Thyroid Stimulating Hormone 1.470 3rd Gen Result Diagram: 07/08/1652007/08/16520 Imaging Last Impressions Chest X-Ray 07/07/162051 Signed Impressions: Service Date/Time: July 21:39 - CONCLUSION: No acute cardiopulmonary disease. Becky Gaines MD Head CT 07/07/16 0000 Signed Impressions: Service Date/Time: July 21:22 - CONCLUSION: Unremarkable study. Becky Gaines MD Cervical Spine CT 07/07/16 0000 Signed Impressions: Service Date/Time: July 21:24 - CONCLUSION: Slight neural foramina compromise left C3-4. Becky Gaines MD Assessment and Plan Assessment and Plan 56 year-old female with seizure disorder admitted 07/07/16 for chest pain and seizure. Problem List: (1) Seizure Status: Acute Plan: Found face-down by in home after syncopal event/suspected seizure. History of seizure disorder, controlled with Depakote and Topamax. Last seizure 4 months ago. Differential: seizure secondary to non-compliance with medications vs subtherapeutic dosing anticonvulsants vs pseudoseizure vs illicit drug use vs alcohol vs infection (lung vs bladder) CBC and CMP grossly within normal limits Imaging: CT head: unremarkable CT C-spine: slightly neural foramina compromise L C3-C4 CXR: no acute cardiopulmonary disease Plan -Admit to inpatient under Dr. Serrano PCP Dr. Eduardo. -Neurology consult, known to Dr. Cloud -Request recommendations for medication titration and any further necessary testing -EEG pending -UDS, U/A, and ethyl alcohol level pending -Anticonvulsants -Continue home Depakote 250mg PO TID -Continue home Topiramate 100mg PO BID -Subtherapeutic Depakote on admission (37), repeat level in AM -Lorazepam 2mg IV PRN uncontrolled seizure -Supportive Care --Bedside swallow, she is hungry and wants to eat PT/OT consulted and she walked well with their help -Vitals q4h, Neurochecks q4h, Bed Rest, seizure precautions -Monitor I/Os, Daily weights, pulse oximetry, O2 supplementation to maintain O2 saturation 88-92% (hx COPD) (2) Chest pain Status: Acute Plan: Intermittent non-radiating epigastric pain presented while patient sitting in car. Worse with inspiration. Improved, but not fully eliminated s/p aspirin and nitrogen in ED. Pt reports recently worsening dysphagia and history of "esophageal rings" with dilation Of note, pt reported doing chest compressions when he found her down. Can encourage him to take CPR class as she may not have needed CPR Patient reports hx two heart attacks, no Q-waves appreciated on EKG. Not on home anticoagulation. Differential: GERD vs ACS vs costochondritis vs PNA vs pneumothorax vs aortic dissection Plan -ACS rule out -Trops, CPK, EKG at 9pm, 3am, 9am -Trop/CPK neg -EKG: Normal sinus rhythm, no ST elevations or depressions, no T-wave changes , no Q waves -Continuous telemetry -Treat GERD -Continue home omeprazole 20mg PO daily for GERD -Mylanta x1 (3) Chronic headache Status: Acute Plan: Coincides with seizures. Headache on admission, improved s/p morphine in ED -Continue Topiramate (see plan seizure) -Tylenol 650mg q6h PRN headache or fever > 100.4 (4) Contracture of multiple joints Status: Acute Plan: Chronic R-sided contracture s/p stroke, especially R lower extremity -Continue Flexeril 10mg PO TID as needed -Continue Ropinirole 0.5mg PO TID (5) Hypokalemia Status: Acute Plan: K within normal limits on admission -Continue home 20ng KCl mEq daily -Trend potassium (6) Hypertension Status: Acute Plan: -Continue atenolol 25mg PO daily (7) Hyperlipidemia Status: Acute Plan: -Continue Atorvastatin 40mg daily -Lipid panel in AM (8) COPD (chronic obstructive pulmonary disease) Status: Acute Plan: -Hold home Albuterol inhaler and Albuterol NEB. 1-2 PPD. -Duonebs q4h PRN shortness of breath -Smoking cessation counseling provided -Nicotine patch contraindicated while chest pain/ACS rule out in light of vasoconstrictive effects (9) Low back pain Status: Acute Plan: -Hold home Voltaren gel -Continue home [place] 10-325mg q8h PRN pain 5-10 -Add Miralax daily for bowel regimen- last BM two days ago (10) Numbness and tingling in hands Status: Acute Plan: -Continue Gabapentin 300mg PO TID (11) Hypothyroidism Status: Acute Plan: -Continue Levothyroxine 88mcg PO daily -TSH pending (12) Weight loss, unintentional Status: Acute Plan: History of GERD and Hx Graves, now hypothyroidism, on supplementation. Saw PCP for this issue morning of admission. Hep C panel ordered outpatient, not yet completed -Hep C panel pending she could be losing weight with her swallowing problems which are being addressed (13) Bipolar disorder Status: Acute Plan: MDD/Bipolar disorder -Continue Duloxetine 30mg BID (14) Anxiety Status: Acute Plan: -Continue home Buspirone 10mg PO BID (15) Insomnia Status: Acute Plan: -Continue Ambien 10mg PO HS PRN insomnia (16) Fluid, Electrolytes, Nutrition, Prophylaxis Status: Acute Plan: Fluids: encourage PO hydration Electrolytes: monitor and replete as necessary, continue home potassium supplementation Nutrition: Heart healthy diet DVT prophylaxis: SCDs GI prophylaxis: not indicated, continue home Protonix for GERD Physician Certification 2 Midnight Certification Type: Admission for Inpatient Services Order for Inpatient Services The services are ordered in accordance with Medicare regulations or non- Medicare payer requirements, as applicable. In the case of services not specified as inpatient-only, they are appropriately provided as inpatient services in accordance with the 2-midnight benchmark. Estimated LOS (days): 3 3 days is the estimated time the patient will need to remain in the hospital, assuming treatment plan goals are met and no additional complications. 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
[2016-07-08] MEDS: DIVALPROEX SODIUM DELAYED RELEASE 250 MG TAB PO SCH ×3 (09:55→18:28)
[2016-07-08] MEDS: LEVOTHYROXINE SODIUM 88 MCG TAB PO SCH (09:55)
[2016-07-08] MEDS: SODIUM CHLORIDE 0.9% FLUSH 5 ML FLUSH IVF SCH ×2 (09:56→22:26)
[2016-07-08] MEDS: TOPIRAMATE 100 MG TAB PO SCH ×2 (09:56→22:26)
[2016-07-08] MEDS: SODIUM CHLOR 0.9% 1000 ML INJ 1,000 ML IV SCH ×2 (09:57→18:29)
[2016-07-08] MEDS: POLYETHYLENE GLYCOL 17 GM PKG PO SCH (11:49)
--- NOTE | 2016-07-08 13:30 | MG ---
cc: MAXINE CHANDLER M.D. Lab No: [id number] Date: 07/08/2016 Age: Sex: F TECHNIQUE 21-channel EEG. DESCRIPTION The background rhythm is a symmetrical alpha rhythm, frequency is about 8-10 Hz, amplitude 20-30 microvolts. There is the expected anterior decremental response. There are no lateralizing features seen. No epileptiform discharge is identified. There is occasional sharp activity in bilateral parietal areas. There is some degree of phase reversal. No lateralizing features seen. During drowsiness there is some slowing in the theta range. Occasional muscle artifact is identified. Hyperventilation was not done. Photic stimulation was done with a normal driving response. INTERPRETATION Abnormal study. There is occasional sharp activity bilaterally suggesting a seizure disorder. MD MARCOS Saucedo/ANDERS /1:23 PM /1:25 PM
[2016-07-08] MEDS: DIVALPROEX SODIUM E.R. 500 MG TAB PO SCH (22:45)
--- NOTE | 2016-07-08 23:16 | EKG ---
Date Performed: 07/07/2016 Time Performed: 20:52:59 PTAGE: 56 years EKG: Sinus rhythm NORMAL ECG PREVIOUS TRACING : 11/10/2014 23.27 DOCTOR: Manolo Morrissey Interpretating Date/Time 07/08/2016 23:14:21
[2016-07-09] VITALS (8 sets, daily range): BP systolic 109–126; BP diastolic 56–75; PULSE 74–87; RESP 16–20; TEMP 97.2–97.7; O2SAT 94–96
[2016-07-09 00:26] LABS: BLOOD, URINE TRACE (NEG); COMMENT (UR) CULT NOT INDICATED; CULTURE IF INDICATED CULT NOT INDICATED; GLUCOSE,URINE NEG (NEG); KETONE, URINE NEG (NEG); NITRITE,URINE NEG (NEG); PH, URINE 5.5 (5.0-8.5); URINE COLOR COLORLESS (YELLW/STRAW)
[2016-07-09 00:32] LABS: AMPHETAMINE, URINE NEG (NEG); BARBITURATES, URINE NEG (NEG); COCAINE, URINE NEG (NEG)
[2016-07-09] MEDS: SODIUM CHLOR 0.9% 1000 ML INJ 1,000 ML IV SCH ×2 (04:42→12:26)
[2016-07-09] MEDS: ACETAMINOPHEN/HYDROcodone 325 MG/10 MG TAB PO PRN ×4 (06:34→21:58)
[2016-07-09] MEDS: LEVOTHYROXINE SODIUM 88 MCG TAB PO SCH (06:34)
--- NOTE | 2016-07-09 06:34 | MB ---
cc: MAXINE CHANDLER M.D. DATE OF CONSULTATION: 07/08/2016 REASON FOR CONSULTATION: Recurrent seizure. HISTORY OF PRESENT ILLNESS Ms. Najera is a very nice 56-year-old woman who has a history of seizure disorder as well as a stroke with residual right-sided weakness. She takes Depakote as well as Topamax and this usually controls the seizures. She states that she is compliant with these medications. She is admitted now with a recurrent generalized tonic-clonic seizure. She is feeling fine now with no recurrences. PAST MEDICAL HISTORY 1. History of stroke in the past. 2. History of seizure disorder as noted above 3. Bipolar disorder 4. Graves disease 5. Anxiety 6. Hypertension 7. COPD 8. Chronic headaches 9. Tonsillectomy 10. Back surgery 11. Hysterectomy MEDICATIONS: The medicines at home are; 1. BuSpar 2. Droloxifene 3. Atenolol 4. Gabapentin 300 mg three times a day. 5. Levothyroxine 6. Ambien 7. Omeprazole 8. Flexeril 9. Voltaren 10. Ventolin 11. Albuterol 12. Diclofenac 13. Depakote 250 mg t.i.d. 14. Topiramate 100 mg b.i.d. 15. Ropinirole 0.5 mg t.i.d. 16. potassium chloride. ALLERGIES None known. FAMILY HISTORY Unremarkable for seizures. SOCIAL HISTORY She does smoke, denies alcohol use or other drug use. NEUROLOGIC EXAMINATION VITAL SIGNS: Blood pressure 122/60, pulse 73, respirations 18, temperature 97 degrees. NEURO: Higher cortical functions are normal. Cranial nerves intact on motor exam she has trace weakness in the right arm and right leg at 4/5 of 5/5 strength of left reflexes symmetric. RADIOLOGIC: CT of the brain is normal. CT cervical spine mild spondylosis no fracture. LABORATORY DATA White count 8,800, hemoglobin 12.4, hematocrit 36% platelet count 268,000, PT 10.2, INR 0.9, APTT 28. Sodium is 139, potassium 3.7, chloride 107, CO2 23.8, BUN is 11, creatinine 0.8, GFR 74, glucose 84, triglyceride 237, cholesterol 159, LDL 83. IMPRESSION Recurrent seizure, Her Depakote level was slightly low at 41. Would recommend increasing the dose to 500 mg b.i.d. continue current dose of topiramate I did review her EEG as well which did show bilateral sharp activity. MD MARCOS Saucedo/juanjose /7:05 PM /6:27 AM
[2016-07-09] MEDS: PANTOPRAZOLE SOD 20 MG DELAYED RELEASE TAB PO SCH (08:04)
[2016-07-09] MEDS: POTASSIUM CHLORIDE 10 MEQ CONTROLLED RELEASE TAB PO SCH (08:04)
[2016-07-09] MEDS: POLYETHYLENE GLYCOL 17 GM PKG PO SCH (08:04)
[2016-07-09] MEDS: DIVALPROEX SODIUM E.R. 500 MG TAB PO SCH ×2 (08:04→21:57)
[2016-07-09] MEDS: CYCLOBENZAPRINE HCL 10 MG TAB PO SCH ×3 (08:04→17:07)
[2016-07-09] MEDS: GABAPENTIN 300 MG CAP PO SCH ×3 (08:04→17:07)
[2016-07-09] MEDS: ATENOLOL 25 MG TAB PO SCH (08:04)
[2016-07-09] MEDS: SODIUM CHLORIDE 0.9% FLUSH 5 ML FLUSH IVF SCH ×2 (08:05→21:58)
[2016-07-09] MEDS: busPIRone HCL 10 MG TAB PO SCH ×2 (08:19→21:57)
[2016-07-09] MEDS: TOPIRAMATE 100 MG TAB PO SCH ×2 (08:19→21:57)
[2016-07-09] MEDS: DULoxetine HCl DR 30 MG CAP PO SCH ×2 (08:19→21:57)
[2016-07-09 08:50] LABS: ALKALINE PHOSPHATASE 70 U/L (45-117); ANION GAP 6 MEQ/L (5-15); AST (GOT) 12 U/L (15-37); BICARBONATE 29.2 MEQ/L (21.0-32.0); BLOOD UREA NITROGEN 14 MG/DL (7-18); CHLORIDE 109 MEQ/L (98-107); GLOMERULAR FILTRATION RATE 73 ML/MIN (>89); POTASSIUM 3.9 MEQ/L (3.5-5.1); SODIUM (NA) 144 MEQ/L (136-145)
[2016-07-09 09:31] LABS: ALT (GPT) 16 U/L (10-53)
[2016-07-09 09:32] LABS: TOTAL BILIRUBIN ADULT 0.1 MG/DL (0.2-1.0)
--- NOTE | 2016-07-09 12:53 | HHI.FPPN ---
Subjective Remarks Patient seen and examined by medical team. No acute events overnight with VSS. Patient states that she is doing much better, but still feels a little drowsy which could be related to the increase of Depakote to BID. She has no new complaints and denies any fevers, chills, SOB, chest pain, NVD, or calf tenderness. (Jan Leal MD R1) Objective Vitals Vital Signs Date Time Temp Pulse Resp B/P Pulse Ox O2 Delivery O2 Flow Rate FiO2 07/09/16 09:27 Room Air 07/09/16 08:00 97.2 76 16 124/66 95 07/09/16 04:30 97.2 74 16 109/56 94 07/09/16 02:46 20 07/09/16 01:13 75 07/09/16 01:11 Room Air 07/08/16 23:56 97.4 71 16 106/55 95 07/08/16 19:35 97.8 68 16 123/69 96 142/72 126/75 07/08/16 18:10 Room Air 07/08/16 18:02 80 07/08/16 16:20 97.7 73 18 122/62 98 07/08/16 16:02 100 07/08/16 15:00 74 18 118/73 96 Room Air 07/08/16 13:30 72 18 118/62 96 Room Air I/O 07/08/16 07/08/16 07/08/16 07/09/16 07/09/16 07/09/16 07:00 15:00 23:00 07:00 15:00 23:00 Intake Total 480 ml 960 ml 720 ml Output Total 600 ml 600 ml Balance 480 ml 360 ml 120 ml Intake Oral 480 ml 960 ml 720 ml Output Urine Total 600 ml 600 ml # Bowel Movements 0 0 (Jan Leal MD R1) Result Diagram: 07/08/16 0521 07/09/16 0647 Objective Remarks Gen: 56 y/o F lying in bed in no acute distress. Partner is at the bedside. Cardio: RRR with no MGR Pulm: CTAB with no CRW ABD: Soft, nontender, nondistended with +BS. No masses appreciated MSK: No edema or cyanosis. No calf tenderness. Neuro: AAOx3. Normal speech. (Jan Leal MD R1) A/P Assessment and Plan 56 year-old female with seizure disorder admitted 07/07/16 for seizures. Discharge Planning Pending GI and Neurology recommendations. DW: Dr. Serrano, Dr. Rust (Jan Leal MD R1) Attending Attestation Patient seen and examined. Case reviewed and discussed with the resident team. Agree with plan of care as discussed with me and documented in the resident note. doing well overall, no new neurologic problems (Flor Serrano MD) Problem List: (1) Seizure Status: Acute Plan: Found face-down by in home after syncopal event/suspected seizure. History of seizure disorder, controlled with Depakote and Topamax. Last seizure 4 months ago. Differential: seizure secondary to non-compliance with medications vs subtherapeutic dosing anticonvulsants vs pseudoseizure vs illicit drug use vs alcohol vs infection (lung vs bladder) CBC and CMP grossly within normal limits Imaging: CT head: unremarkable CT C-spine: slightly neural foramina compromise L C3-C4 CXR: no acute cardiopulmonary disease -EEG: Abnormal study. Occasional sharp activity bilaterally suggesting seizure disorder. -Valproic Acid on admission 39, today 54 -Neurology consult, known to Dr. Cloud -Increase Depakote to 500mg BID -Anticonvulsants -Continue home Depakote 250mg PO TID -Continue home Topiramate 100mg PO BID -Subtherapeutic Depakote on admission (37), repeat level in AM -Lorazepam 2mg IV PRN uncontrolled seizure -Supportive Care -PT/OT consulted -Seizure precautions (2) Dysphagia Status: Acute Plan: Patient with history of dysphagia s/p 2 esophageal dilations. -ST swallow evaluation: Recommend regular diet with GI consult for dilation -GI consult placed, appreciate recommendations (3) Chronic headache Status: Chronic Plan: Coincides with seizures. Headache on admission, improved s/p morphine in ED -Continue Topiramate (see plan seizure) -Tylenol 650mg q6h PRN headache or fever > 100.4 (4) Hypertension Status: Chronic Plan: -Continue atenolol 25mg PO daily (5) Hyperlipidemia Status: Chronic Plan: -Continue Atorvastatin 40mg daily (6) COPD (chronic obstructive pulmonary disease) Status: Chronic Plan: -Hold home Albuterol inhaler and Albuterol NEB. 1-2 PPD. -Duonebs q4h PRN shortness of breath -Smoking cessation counseling provided -Nicotine patch contraindicated while chest pain/ACS rule out in light of vasoconstrictive effects (7) Low back pain Status: Chronic Plan: -Hold home Voltaren gel -Continue home [place] 10-325mg q8h PRN pain 5-10 -Add Miralax daily for bowel regimen- last BM two days ago (8) Numbness and tingling in hands Status: Acute Plan: -Continue Gabapentin 300mg PO TID (9) Hypothyroidism Status: Acute Plan: -Continue Levothyroxine 88mcg PO daily -TSH 1.47 (10) Bipolar disorder Status: Acute Plan: MDD/Bipolar disorder -Continue Duloxetine 30mg BID (11) Anxiety Status: Acute Plan: -Continue home Buspirone 10mg PO BID (12) Insomnia Status: Acute Plan: -Continue Ambien 10mg PO HS PRN insomnia (13) Fluid, Electrolytes, Nutrition, Prophylaxis Status: Acute Plan: Fluids: encourage PO hydration Electrolytes: monitor and replete as necessary, continue home potassium supplementation Nutrition: Heart healthy diet DVT prophylaxis: SCDs GI prophylaxis: not indicated, continue home Protonix for GERD (Jan Leal MD R1) Problem Qualifiers (1) Dysphagia: Qualified Code: R13.10 - Dysphagia, unspecified type (2) Chronic headache: Qualified Code: R51 - Chronic nonintractable headache, unspecified headache type (3) Hypertension: Qualified Code: I10 - Essential hypertension (4) Hyperlipidemia: Qualified Code: E78.5 - Hyperlipidemia, unspecified hyperlipidemia type (5) COPD (chronic obstructive pulmonary disease): Qualified Code: J44.9 - Chronic obstructive pulmonary disease, unspecified COPD type (6) Low back pain: (7) Hypothyroidism: Qualified Code: E89.0 - Postablative hypothyroidism (8) Bipolar disorder: Qualified Code: F31.70 - Bipolar affective disorder in remission (9) Insomnia: Qualified Code: G47.00 - Insomnia, unspecified type Jan Leal MD R1 Jul 09, 2016 12:53 Flor Serrano MD Jul 16, 2016 13:26
[2016-07-09] MEDS: RESP: ALBUTEROL 2.5 MG/IPRATROPIUM 0.5 MG NEB (PRN) NEB (16:36)
--- NOTE | 2016-07-09 17:12 | PD.CONS ---
HPI History of Present Illness This is a 56 year old female who came to the ER for evaluation of chest pain and syncopal even/suspected fever. She reports that the other day, she started having some epigastric pain that was worse with inspiration. She went home to rest and was found by her , who was concerned that she wasn't breathing and called EMS and started chest compressions and rescue breathing. When EMS arrived, she was breathing on her own and awake, but confused. She reports that she was seen by her primary care physician earlier that day for worsening dysphagia and she was in the process of having an emergency referral placed to GI when her symptoms began. She does have a hx of Schatzki's ring requiring dilatation a few times in the past. She has been seen by Dr. Abarca in the past , but states her insurance changed so she was in the process of getting a referral to GI when she ended up in the hospital. She reports that she is been having difficulty swallowing for the past 2-1/2 weeks. She complains of solid foods getting caught in her upper esophagus. She reports that she has to drink a large amount of water to push the food bolus boluses down. This has progressively been getting worse. She denies any associated heartburn or reflux , nausea or vomiting, bowel changes, melena, or hematochezia. She does note that she doesn't have any difficulty with fluids passing. She last had EGD/ Colonoscopy (05/28/14) and this revealed normal upper third, middle third of the esophagus, and lower third of the esophagus. Ring present in the GE junction, Schatzki's. Dilatation was performed. Normal cardia, fundus, and body of the stomach. Mild gastritis found in the antrum. Duodenitis in the duodenal bulb and second portion of the duodenum. Normal rectum, rectosigmoid junction, sigmoid colon, descending colon, splenic flexure, transverse colon, hepatic flexure, ascending colon, cecum, ileocecal valve. Normal terminal ileum. Two diminutive polyps found in the cecum, mild diverticulosis found in the sigmoid colon, internal hemorrhoids in the rectum. Rpt. Colonoscopy was recommended for 3 years. (Nabila Villar) PFSH Past Medical History Seizure disorder Schatzki's ring Gastritis Colon polyps Asthma/COPD Hypertension Depression Insomnia Chronic headaches Chronic neck and back pain, DDD Bipolar disorder History of Graves' disease, now hypothyroidism Past Surgical History Multiple EGD with dilatations Colonoscopy Hysterectomy Tonsillectomy Back surgery (Nabila Villar) Coded Allergies: No Known Allergies (Unverified , 07/07/16) Medications Allergies Coded Allergies Type Severity Reaction Last Updated Verified No Known Allergies 07/07/16 No Active Scripts Medications Dose Route/Sig Days Date Category Dose Instructions Diclofenac Topical 1% Gel 1 Applic TOPICAL BID 07/07/16 Reported Buspirone (Buspirone HCl) 10 Mg Tab 10 Mg PO BID 07/06/[address] (Duloxetine HCl) 30 Mg Capdr 30 Mg PO BID 06/28/16 Rx Atenolol 25 Mg Tab 25 Mg PO DAILY 06/28/16 Rx Gabapentin 300 Mg Cap 300 Mg PO TID 06/28/16 Rx Levothyroxine (Levothyroxine Sodium) 88 Mcg Tab 88 Mcg PO DAILY 06/28/16 Rx Ambien (Zolpidem Tartrate) 10 Mg Tab 10 Mg PO HS PRN 06/28/16 Rx Omeprazole 20 Mg Tab 20 Mg PO DAILY 06/28/16 Rx Flexeril (Cyclobenzaprine HCl) 10 Mg Tab 10 Mg PO TID 04/13/16 Rx Voltaren Topical (Diclofenac Topical) 1% Gel 1 Applic TOPICAL TID 04/08/16 Rx Apply to affected area Atorvastatin (Atorvastatin Calcium) 40 Mg Tab 40 Mg PO HS 04/07/[address] (Divalproex Sodium) 250 Mg Tabdr 250 Mg PO TID 03/15/16 Reported Topiramate 100 Mg Tab 100 Mg PO BID 03/15/16 Reported Ropinirole 0.5 Mg Tab 0.5 Mg PO TID 03/15/16 Reported Potassium Chloride CR (Potassium Chloride) 10 Meq Tab 20 Meq PO DAILY 03/15/16 Reported [place] (Hydrocodone-Acetaminophen) 10-325 Mg Tab 1 Tab PO TID PRN 03/15/16 Reported Ventolin Hfa 18 GM Inh (Albuterol Sulfate) 90 Mcg/Act Aer 2 Puff INH Q4-6H PRN 03/15/16 Rx Albuterol Neb (Albuterol Sulfate) 2.5 Mg/3 Ml Neb 2.5 Mg NEB QID NEB 03/15/16 Rx Family History Father from coronary artery disease. He also had throat cancer. She reports that her brother also had throat cancer Social History She smokes 1 pack of cigarettes per day for many years No alcohol use No illicit drug use (Nabila Villar) Review of Systems Constitutional: COMPLAINS OF: Fatigue, DENIES: Weight loss, Change in appetite Ears, nose, mouth, throat: COMPLAINS OF: Hoarseness Respiratory: COMPLAINS OF: Cough, Wheezing Cardiovascular: COMPLAINS OF: Chest pain Gastrointestinal: COMPLAINS OF: Abdominal pain, Difficulty Swallowing, Odynophagia, DENIES: Black stools, Bloody stools, Constipation, Diarrhea, Nausea, Vomiting, Heartburn, Hematemesis Musculoskeletal: COMPLAINS OF: Joint pain, Back pain Integumentary: DENIES: Abnormal pigmentation, Rash Hematologic/lymphatic: DENIES: Bruising Neurologic: COMPLAINS OF: Headache Psychiatric: DENIES: Confusion (Nabila Villar) GI Exam Vitals I&O Vital Signs Date Time Temp Pulse Resp B/P Pulse Ox O2 Delivery O2 Flow Rate FiO2 07/09/16 16:30 96 21 07/09/16 12:00 97.4 85 20 124/74 95 07/09/16 09:27 Room Air 07/09/16 08:00 97.2 76 16 124/66 95 07/09/16 04:30 97.2 74 16 109/56 94 07/09/16 02:46 20 07/09/16 01:13 75 07/09/16 01:11 Room Air 07/08/16 23:56 97.4 71 16 106/55 95 07/08/16 19:35 97.8 68 16 123/69 96 142/72 126/75 07/08/16 18:10 Room Air 07/08/16 18:02 80 I/O 07/08/16 07/08/16 07/08/16 07/09/16 07/09/16 07/09/16 07:00 15:00 23:00 07:00 15:00 23:00 Intake Total 480 ml 960 ml 720 ml Output Total 600 ml 600 ml Balance 480 ml 360 ml 120 ml Intake Oral 480 ml 960 ml 720 ml Output Urine Total 600 ml 600 ml # Bowel Movements 0 0 Imaging Last Impressions Chest X-Ray 07/07/162051 Signed Impressions: Service Date/Time: July 21:39 - CONCLUSION: No acute cardiopulmonary disease. Becky Gaines MD Head CT 07/07/16 0000 Signed Impressions: Service Date/Time: July 21:22 - CONCLUSION: Unremarkable study. Becky Gaines MD Cervical Spine CT 07/07/16 0000 Signed Impressions: Service Date/Time: July 21:24 - CONCLUSION: Slight neural foramina compromise left C3-4. Becky Gaines MD Laboratory Test 07/09/16 07/09/16 00:01 06:47 Urine Color COLORLESS Urine Turbidity CLEAR Urine pH 5.5 Urine Specific [place] 1.004 Urine Protein NEG mg/dL Urine Glucose (UA) NEG mg/dL Urine Ketones NEG mg/dL Urine Occult Blood TRACE Urine Nitrite NEG Urine Bilirubin NEG Urine Urobilinogen LESS THAN 2.0 MG/DL Urine Leukocyte Esterase NEG Microscopic Urinalysis Comment CULT NOT INDICATED Urine Opiates Screen NEG Urine Barbiturates Screen NEG Urine Amphetamines Screen NEG Urine Benzodiazepines Screen NEG Urine Cocaine Screen NEG Urine Cannabinoids Screen NEG Sodium Level 144 MEQ/L Potassium Level 3.9 MEQ/L Chloride Level 109 MEQ/L Carbon Dioxide Level 29.2 MEQ/L Anion Gap 6 MEQ/L Blood Urea Nitrogen 14 MG/DL Creatinine 0.81 MG/DL Estimat Glomerular Filtration 73 ML/MIN Rate Random Glucose 95 MG/DL Calcium Level 8.1 MG/DL Total Bilirubin 0.1 MG/DL Aspartate Amino Transf 12 U/L (AST/SGOT) Alanine Aminotransferase 16 U/L (ALT/SGPT) Alkaline Phosphatase 70 U/L Total Protein 6.6 GM/DL Albumin 3.0 GM/DL Valproic Acid (Depakene) Level 54 MCG/ML Physical Examination HEENT: Normocephalic; atraumatic; no jaundice. CHEST: Expiratory wheezing, productive cough CARDIAC: RRR. ABDOMEN: Soft, nondistended, nontender; no hepatosplenomegaly; bowel sounds are present in all four quadrants. EXTREMITIES: No clubbing, cyanosis, or edema. SKIN: Normal; no rash; no jaundice. DREDGE OPERATOR: No focal deficits; alert and oriented times three. (Nabila Villar) Assessment and Plan Plan ASSESSMENT: - Dysphagia, with hx of Schatzki's Ring, requiring dilatations. Last EGD/ Colonoscopy (05/28/14) and this revealed normal upper third, middle third of the esophagus, and lower third of the esophagus. Ring present in the GE junction, Schatzki's. Dilatation was performed. Normal cardia, fundus, and body of the stomach. Mild gastritis found in the antrum. Duodenitis in the duodenal bulb and second portion of the duodenum. Normal rectum, rectosigmoid junction, sigmoid colon, descending colon, splenic flexure, transverse colon, hepatic flexure, ascending colon, cecum, ileocecal valve. Normal terminal ileum. Two diminutive polyps found in the cecum, mild diverticulosis found in the sigmoid colon, internal hemorrhoids in the rectum. Rpt. Colonoscopy was recommended for 3 years. She has seen Dr[address] Abarca in the past, but states her insurance changed and was in the process of getting referred to GI when she had her episode that brought her to the ER. PPI. - Suspected seizure. Neurology following. - Chronic headache, HTN, Hyperlipidemia, COPD, Hypothyroidism, Bipolar d/o, Anxiety per primary. PLAN: - Plan for EGD +/- dilatation on Monday - Obtain consents - Diet as tolerated - Nothing by mouth after midnight Monday night - Continue PPI - Supportive care - Further recommendations to follow based on results of above - Pt seen and examined by Dr. Michaels and myself and this note is written on his behalf (Nabila Villar) Physician Comments Patient seen and examined Agree with above Continue with current supportive care Monitor labs EGD with dilation on Monday (Anurag Michaels MD) Nabila Villar Jul 09, 2016 17:12 Anurag Michaels MD Jul 09, 2016 20:54
--- NOTE | 2016-07-09 19:46 | EKG ---
Date Performed: 07/08/2016 Time Performed: 13:35:27 PTAGE: 56 years EKG: Sinus rhythm NONSPECIFIC T-WAVE ABNORMALITY Since previous tracing, no significant change noted BORDERLINE ECG PREVIOUS TRACING : 07/07/2016 20.52 DOCTOR: Tae Vega Interpretating Date/Time 07/09/2016 19:44:52
[2016-07-09] MEDS: ATORVASTATIN 40 MG TAB PO SCH (21:57)
[2016-07-10] VITALS (9 sets, daily range): BP systolic 100–147; BP diastolic 58–82; PULSE 76–98; RESP 18; TEMP 97.4–98.1; O2SAT 93–95
[2016-07-10] MEDS: ACETAMINOPHEN/HYDROcodone 325 MG/10 MG TAB PO PRN ×5 (03:02→21:13)
[2016-07-10] MEDS: LEVOTHYROXINE SODIUM 88 MCG TAB PO SCH (07:00)
[2016-07-10] MEDS: ZOLPIDEM TARTRATE 10 MG TAB PO PRN (07:02)
[2016-07-10] MEDS: SODIUM CHLORIDE 0.9% FLUSH 5 ML FLUSH IVF SCH ×2 (08:01→21:13)
[2016-07-10] MEDS: DIVALPROEX SODIUM E.R. 500 MG TAB PO SCH ×2 (08:01→21:21)
[2016-07-10] MEDS: POTASSIUM CHLORIDE 10 MEQ CONTROLLED RELEASE TAB PO SCH (08:01)
[2016-07-10] MEDS: PANTOPRAZOLE SOD 20 MG DELAYED RELEASE TAB PO SCH (08:01)
[2016-07-10] MEDS: DULoxetine HCl DR 30 MG CAP PO SCH ×2 (08:01→21:22)
[2016-07-10] MEDS: GABAPENTIN 300 MG CAP PO SCH ×3 (08:01→16:49)
[2016-07-10] MEDS: TOPIRAMATE 100 MG TAB PO SCH ×2 (08:01→21:13)
[2016-07-10] MEDS: POLYETHYLENE GLYCOL 17 GM PKG PO SCH (08:01)
[2016-07-10] MEDS: CYCLOBENZAPRINE HCL 10 MG TAB PO SCH ×3 (08:01→16:49)
[2016-07-10] MEDS: ATENOLOL 25 MG TAB PO SCH (08:01)
[2016-07-10] MEDS: busPIRone HCL 10 MG TAB PO SCH ×2 (08:01→21:13)
--- NOTE | 2016-07-10 11:20 | HHI.PR ---
Review/Management Diagnosis seizure--stable on higher depakote Plan Continue current anticonvulsant Ok from neuro standpoint to discharge home on current anticonvulsant therapy Follow up with me in out patient 2-3 weeks No driving times 6 months of being sx free. Diagnosis/Plan: Subjective Subjective Comments No acute events reported No seizures Tolerating higher depakote dose better Active Medications Current Medications Medications (Trade) Dose Ordered Sig/Nicole Route Start Time Stop Time Status Last Admin (NS Flush) 2 ml UNSCH PRN IVF 07/07/16 23:45 (NS Flush) 2 ml BID IVF 07/07/16 23:45 07/10/16 08:01 (Tylenol) 650 mg Q4H PRN PO 07/07/16 23:45 07/08/16 16:00 (Protonix) 20 mg DAILY PO 07/08/16 09:00 07/10/16 08:01 (KCl) 20 meq DAILY PO 07/08/16 09:00 07/10/16 08:01 (Requip) 0.5 mg TID PO 07/08/16 00:00 07/10/16 08:01 (Topamax) 100 mg BID PO 07/08/16 09:00 07/10/16 08:01 (Ambien) 10 mg HS PRN PO 07/08/16 00:00 07/10/16 07:02 (Tenormin) 25 mg DAILY PO 07/08/16 09:00 07/10/16 08:01 (Lipitor) 40 mg HS PO 07/08/16 00:00 07/09/16 21:57 (Buspar) 10 mg BID PO 07/08/16 00:00 07/10/16 08:01 (Flexeril) 10 mg TID PO 07/08/16 00:00 07/10/16 08:01 (Cymbalta Dr) 30 mg BID PO 07/08/16 00:00 07/10/16 08:01 (Neurontin) 300 mg TID PO 07/08/16 00:00 07/10/16 08:01 (Synthroid) 88 mcg DAILY@07 PO 07/08/16 07:00 07/10/16 07:00 (Nitrostat Sl) 0.4 mg Q5M PRN SL 07/08/16 01:30 (Miralax) 17 gm DAILY PO 07/08/16 09:00 07/10/16 08:01 ([place] 10-325 Mg) 1 tab Q4H PRN PO 07/08/16 17:30 07/10/16 07:01 (Depakote Er) 500 mg BID PO 07/08/16 21:00 07/10/16 08:01 Allergies Allergies Coded Allergies No Known Allergies (Unverified07/07/16) Exam I&O / VS 07/09/16 07/09/16 07/10/16 15:00 23:00 07:00 Intake Total 840 ml 240 ml 240 ml Balance 840 ml 240 ml 240 ml Intake Oral 840 ml 240 ml 240 ml # Voids 2 2 # Bowel Movements 0 0 0 Vital Signs Date Time Temp Pulse Resp B/P Pulse Ox O2 Delivery O2 Flow Rate FiO2 07/10/16 08:28 98.0 98 18 125/82 93 07/10/16 04:00 98.1 82 18 125/73 94 07/10/16 00:00 97.4 76 18 100/58 95 07/09/16 20:00 97.4 79 18 124/71 95 07/09/16 20:00 86 07/09/16 20:00 Room Air 07/09/16 16:30 96 21 07/09/16 16:00 97.7 87 16 126/75 96 07/09/16 12:00 97.4 85 20 124/74 95 Exam Comments alert, oriented, speech normal comprhension normal CN 2-12 normal Motor 5/5 BUCarlos Gorman PhD Jul 10, 2016 11:19
[2016-07-10] MEDS: RESP: ALBUTEROL 2.5 MG/IPRATROPIUM 0.5 MG NEB (PRN) NEB ×2 (12:07→19:46)
[2016-07-10 12:34] LABS: POTASSIUM 3.7 MEQ/L (3.5-5.1)
--- NOTE | 2016-07-10 13:06 | HHI.GIFU ---
Subjective Remarks Resting in bed. States she is feeling slightly better. Still having difficulty with solids getting hung up in her upper esophageal area. No vomiting states her breathing has improved (Nabila Villar) Objective Vitals I&O Vital Signs Date Time Temp Pulse Resp B/P Pulse Ox O2 Delivery O2 Flow Rate FiO2 07/10/16 12:13 95 21 07/10/16 12:04 97.5 81 18 126/76 94 07/10/16 08:28 98.0 98 18 125/82 93 07/10/16 04:00 98.1 82 18 125/73 94 07/10/16 00:00 97.4 76 18 100/58 95 07/09/16 20:00 97.4 79 18 124/71 95 07/09/16 20:00 86 07/09/16 20:00 Room Air 07/09/16 16:30 96 21 07/09/16 16:00 97.7 87 16 126/75 96 I/O 07/09/16 07/09/16 07/09/16 07/10/16 07/10/16 07/10/16 07:00 15:00 23:00 07:00 15:00 23:00 Intake Total 720 ml 840 ml 240 ml 240 ml Output Total 600 ml Balance 120 ml 840 ml 240 ml 240 ml Intake Oral 720 ml 840 ml 240 ml 240 ml Output Urine Total 600 ml # Voids 2 2 # Bowel Movements 0 0 0 0 Laboratory Laboratory Tests Test 07/10/16 11:15 Sodium Level 144 Potassium Level 3.7 Chloride Level 105 Carbon Dioxide Level 27.0 Anion Gap 12 Blood Urea Nitrogen 15 Creatinine 0.99 Estimat Glomerular Filtration 58 Rate Random Glucose 113 Calcium Level 8.7 Imaging Last Impressions Chest X-Ray 07/07/162051 Signed Impressions: Service Date/Time: July 21:39 - CONCLUSION: No acute cardiopulmonary disease. Becky Gaines MD Head CT 07/07/16 0000 Signed Impressions: Service Date/Time: July 21:22 - CONCLUSION: Unremarkable study. Becky Gaines MD Cervical Spine CT 07/07/16 0000 Signed Impressions: Service Date/Time: July 21:24 - CONCLUSION: Slight neural foramina compromise left C3-4. Becky Gaines MD Physical Exam HEENT: Normocephalic; atraumatic; no jaundice. CHEST: Expiratory wheezing CARDIAC: RRR ABDOMEN: Soft, nondistended, nontender; no hepatosplenomegaly; bowel sounds are present in all four quadrants. EXTREMITIES: No clubbing, cyanosis, or edema. SKIN: Normal; no rash; no jaundice. LAY OUT AND DETAIL DRAFTER: No focal deficits; alert and oriented times three. (Nabila Villar) Assessment and Plan Plan ASSESSMENT: - Dysphagia, with hx of Schatzki's Ring, requiring dilatations. Last EGD/ Colonoscopy (05/28/14) and this revealed normal upper third, middle third of the esophagus, and lower third of the esophagus. Ring present in the GE junction, Schatzki's. Dilatation was performed. Normal cardia, fundus, and body of the stomach. Mild gastritis found in the antrum. Duodenitis in the duodenal bulb and second portion of the duodenum. Normal rectum, rectosigmoid junction, sigmoid colon, descending colon, splenic flexure, transverse colon, hepatic flexure, ascending colon, cecum, ileocecal valve. Normal terminal ileum. Two diminutive polyps found in the cecum, mild diverticulosis found in the sigmoid colon, internal hemorrhoids in the rectum. Rpt. Colonoscopy was recommended for 3 years. She has seen Dr[address] Abarca in the past, but states her insurance changed and was in the process of getting referred to GI when she had her episode that brought her to the ER. Plan for egd with possible dilatation in am. PPI. - Suspected seizure. Neurology following. - Chronic headache, HTN, Hyperlipidemia, COPD, Hypothyroidism, Bipolar d/o, Anxiety per primary. PLAN: - Plan for EGD +/- dilatation on Monday - Obtain consents - Diet as tolerated - Nothing by mouth after midnight Monday night - Continue PPI - Supportive care - Further recommendations to follow based on results of above - Pt seen and examined by Dr. Michaels and myself and this note is written on his behalf (Nabila Villar) Physician Comments Patient Seen and examined Agree with above Continue with current supportive care Monitor labs EGD with colonoscopy tomorrow (Anurag Michaels MD) Nabila Villar Jul 10, 2016 13:06 Anurag Michaels MD Jul 10, 2016 18:28
[2016-07-10] MEDS ORDERED: MAGNESIUM HYDROXIDE SUSP 30 ML CUP PO PRN (15:30)
--- NOTE | 2016-07-10 15:35 | HHI.FPPN ---
Subjective Remarks Ms Najera has multiple questions today. 1) sleeping problems-she has trouble falling asleep even with ambien and also has been waking up at 3 am at times and not being able to fall asleep. She is also concerned about snoring as her son has sleep apnea. I gave her a paper on basic sleep hygiene from up to date and asked her to follow the instructions and try to work on that as well as she can talk to her primary care Dr once she tries the sleep hygiene if needed 2)not clear thinking- she is fluent and able to convey her ideas but she feels she is not as clear as she once was. she is able to articulate but remembers being sharper. we talked about her CVA, her meds and her lack of sleep and stress with being sick and in the hospital. asked to see how she recovers once she is home and she can address with her Drs if she feels her meds are adding to some confusion 3)constipation- ordered MOM as well as Miralax She is ready for her procedure tomorrow and has had no seizures since admission so should be hopefully ready for D/C after her procedure Objective Vitals Vital Signs Date Time Temp Pulse Resp B/P Pulse Ox O2 Delivery O2 Flow Rate FiO2 07/10/16 12:13 95 21 07/10/16 12:04 97.5 81 18 126/76 94 07/10/16 08:28 98.0 98 18 125/82 93 07/10/16 08:00 89 07/10/16 08:00 Room Air 07/10/16 04:00 98.1 82 18 125/73 94 07/10/16 00:00 97.4 76 18 100/58 95 07/09/16 20:00 97.4 79 18 124/71 95 07/09/16 20:00 86 07/09/16 20:00 Room Air 07/09/16 16:30 96 21 07/09/16 16:00 97.7 87 16 126/75 96 I/O 07/09/16 07/09/16 07/09/16 07/10/16 07/10/16 07/10/16 07:00 15:00 23:00 07:00 15:00 23:00 Intake Total 720 ml 840 ml 240 ml 240 ml Output Total 600 ml Balance 120 ml 840 ml 240 ml 240 ml Intake Oral 720 ml 840 ml 240 ml 240 ml Output Urine Total 600 ml # Voids 2 2 # Bowel Movements 0 0 0 0 Result Diagram: 07/08/16 0521 07/10/16 1115 Objective Remarks Gen: 56 y/o F lying in bed in no acute distress. fluent, clear speech and no change in her ability to move Cardio: RRR with no MGR Pulm: CTAB with no CRW ABD: Soft, nontender, nondistended with +BS. No masses appreciated MSK: No edema or cyanosis. No calf tenderness. Neuro: AAOx3. Normal speech. Urinary Catheter: No Vascular Central Line Catheter: No A/P Assessment and Plan 56 year-old female with seizure disorder admitted 07/07/16 for seizures. Discharge Planning Pending GI and Neurology recommendations. Hope she can go home tomorrow Problem List: (1) Seizure Status: Acute Plan: Found face-down by in home after syncopal event/suspected seizure. History of seizure disorder, controlled with Depakote and Topamax. Last seizure 4 months ago. Differential: seizure secondary to non-compliance with medications vs subtherapeutic dosing anticonvulsants vs pseudoseizure vs illicit drug use vs alcohol vs infection (lung vs bladder) CBC and CMP grossly within normal limits she has done very well since admission with no seizures Imaging: CT head: unremarkable CT C-spine: slightly neural foramina compromise L C3-C4 CXR: no acute cardiopulmonary disease -EEG: Abnormal study. Occasional sharp activity bilaterally suggesting seizure disorder. -Valproic Acid on admission 39, up to 54 -Neurology consult, known to Dr. Cloud -Increase Depakote to 500mg BID -Anticonvulsants -Continue home Depakote 250mg PO TID -Continue home Topiramate 100mg PO BID -Subtherapeutic Depakote on admission (37), repeat level in AM -Lorazepam 2mg IV PRN uncontrolled seizure -Supportive Care -PT/OT consulted -Seizure precautions (2) Dysphagia Status: Acute Plan: Patient with history of dysphagia s/p 2 esophageal dilations. -ST swallow evaluation: Recommend regular diet with GI consult for dilation -GI consult placed, appreciate recommendations (3) Chronic headache Status: Chronic Plan: Coincides with seizures. Headache on admission, improved s/p morphine in ED -Continue Topiramate (see plan seizure) -Tylenol 650mg q6h PRN headache or fever > 100.4 no headaches today (4) Hypertension Status: Chronic Plan: -Continue atenolol 25mg PO daily (5) Hyperlipidemia Status: Chronic Plan: -Continue Atorvastatin 40mg daily (6) COPD (chronic obstructive pulmonary disease) Status: Chronic Plan: -Hold home Albuterol inhaler and Albuterol NEB. 1-2 PPD. -Duonebs q4h PRN shortness of breath -Smoking cessation counseling provided -Nicotine patch contraindicated while chest pain/ACS rule out in light of vasoconstrictive effects (7) Low back pain Status: Chronic Plan: -Hold home Voltaren gel -Continue home [place] 10-325mg q8h PRN pain 5-10 -Add Miralax daily for bowel regimen- last BM two days ago (8) Numbness and tingling in hands Status: Acute Plan: -Continue Gabapentin 300mg PO TID (9) Hypothyroidism Status: Acute Plan: -Continue Levothyroxine 88mcg PO daily -TSH 1.47 (10) Bipolar disorder Status: Acute Plan: MDD/Bipolar disorder -Continue Duloxetine 30mg BID (11) Anxiety Status: Acute Plan: -Continue home Buspirone 10mg PO BID (12) Insomnia Status: Acute Plan: -Continue Ambien 10mg PO HS PRN insomnia gave sleep hygiene info and she can follow up as an outpt as she complains about sleeping problems at home (13) Fluid, Electrolytes, Nutrition, Prophylaxis Status: Acute Plan: Fluids: encourage PO hydration Electrolytes: monitor and replete as necessary, continue home potassium supplementation Nutrition: Heart healthy diet DVT prophylaxis: SCDs GI prophylaxis: not indicated, continue home Protonix for GERD Problem Qualifiers (1) Dysphagia: Qualified Code: R13.10 - Dysphagia, unspecified type (2) Chronic headache: Qualified Code: R51 - Chronic nonintractable headache, unspecified headache type (3) Hypertension: Qualified Code: I10 - Essential hypertension (4) Hyperlipidemia: Qualified Code: E78.5 - Hyperlipidemia, unspecified hyperlipidemia type (5) COPD (chronic obstructive pulmonary disease): Qualified Code: J44.9 - Chronic obstructive pulmonary disease, unspecified COPD type (6) Low back pain: (7) Hypothyroidism: Qualified Code: 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
[2016-07-10] MEDS: ATORVASTATIN 40 MG TAB PO SCH (21:13)
[2016-07-11] VITALS (7 sets, daily range): BP systolic 106–128; BP diastolic 69–80; PULSE 80–88; RESP 16–20; TEMP 97.6–98.3; O2SAT 92–99
[2016-07-11] MEDS: SODIUM CHLOR 0.9% 1000 ML INJ 1,000 ML IV SCH ×2 (00:03→14:27)
[2016-07-11] MEDS: ZOLPIDEM TARTRATE 10 MG TAB PO PRN (00:04)
[2016-07-11] MEDS: LEVOTHYROXINE SODIUM 88 MCG TAB PO SCH (05:02)
[2016-07-11] MEDS: ACETAMINOPHEN/HYDROcodone 325 MG/10 MG TAB PO PRN ×3 (05:02→17:22)
[2016-07-11] MEDS ORDERED: PROPOFOL 200 MG/20 ML AMP IV ONE (09:35)
--- NOTE | 2016-07-11 09:50 | HHI.GIFU ---
Subjective Remarks doing ok, no new complains, no chest pain today Objective Vitals I&O Vital Signs Date Time Temp Pulse Resp B/P Pulse Ox O2 Delivery O2 Flow Rate FiO2 07/11/16 09:09 97.6 83 16 121/75 92 07/11/16 04:49 97.6 83 16 121/75 92 07/11/16 00:00 98.3 88 18 128/80 99 07/10/16 20:45 Room Air 07/10/16 20:00 98.0 91 18 147/80 95 07/10/16 19:46 95 21 07/10/16 16:15 97.9 76 18 108/67 94 07/10/16 12:13 95 21 07/10/16 12:04 97.5 81 18 126/76 94 I/O 07/10/16 07/10/16 07/10/16 07/11/16 07/11/16 07/11/16 06:59 14:59 22:59 06:59 14:59 22:59 Intake Total 240 ml 840 ml 1240 ml Balance 240 ml 840 ml 1240 ml Intake Oral 240 ml 840 ml 1240 ml # Voids 2 4 9 1 # Bowel Movements 0 0 1 0 Laboratory Laboratory Tests Test 07/10/16 11:15 Sodium Level 144 Potassium Level 3.7 Chloride Level 105 Carbon Dioxide Level 27.0 Anion Gap 12 Blood Urea Nitrogen 15 Creatinine 0.99 Estimat Glomerular Filtration 58 Rate Random Glucose 113 Calcium Level 8.7 Physical Exam HEENT: Normocephalic; atraumatic; no jaundice. CHEST: Expiratory wheezing CARDIAC: RRR ABDOMEN: Soft, nondistended, nontender; no hepatosplenomegaly; bowel sounds are present in all four quadrants. EXTREMITIES: No clubbing, cyanosis, or edema. SKIN: Normal; no rash; no jaundice. STUDENT DEVELOPMENT ADVISOR: No focal deficits; alert and oriented times three. Assessment and Plan Plan ASSESSMENT: - Dysphagia, with hx of Schatzki's Ring, requiring dilatations. Last EGD/ Colonoscopy (05/28/14) and this revealed normal upper third, middle third of the esophagus, and lower third of the esophagus. Ring present in the GE junction, Schatzki's. Dilatation was performed. Normal cardia, fundus, and body of the stomach. Mild gastritis found in the antrum. Duodenitis in the duodenal bulb and second portion of the duodenum. Normal rectum, rectosigmoid junction, sigmoid colon, descending colon, splenic flexure, transverse colon, hepatic flexure, ascending colon, cecum, ileocecal valve. Normal terminal ileum. Two diminutive polyps found in the cecum, mild diverticulosis found in the sigmoid colon, internal hemorrhoids in the rectum. Rpt. Colonoscopy was recommended for 3 years. She has seen Dr. Abarca in the past, but states her insurance changed and was in the process of getting referred to GI when she had her episode that brought her to the ER. Plan for egd with possible dilatation in am. PPI. - Suspected seizure. Neurology following. - Chronic headache, HTN, Hyperlipidemia, COPD, Hypothyroidism, Bipolar d/o, Anxiety per primary. 3-6-17 doing better, EGD showed ? stricture S/P dilation Savary size 17 mm, ? toño of the esophagus Bx from mid esophagus, gastritis Bx from antrum,. food in the stomach (fundus) PLAN: - Diet as tolerated - await Bx result - Continue PPI - Supportive care - Further recommendations to follow based on results of BX - Pif continue to have symptom we may need esophageal motility and possible gastric emptying studies, these can be done as outpatient if patient to be discharged - FU in 2 wks as outpatient. Katrin Major MD Jul 11, 2016 09:50
[2016-07-11] MEDS ORDERED: ACETAMINOPHEN/HYDROcodone 325 MG/10 MG TAB PO PRN (10:00)
--- NOTE | 2016-07-11 10:38 | HHI.FPPN ---
Subjective Remarks Patient seen and examined this morning after esophageal dilation. No acute events overnight with vital signs stable. Patient states that she feels well after dilation and hopefully that will assist her with her dysphagia. Medical team discussed findings of EGD with dilation at all questions were answered. She has no complaints this morning and denies any fevers, shortness of breath, chest pain, NVD, seizure-like activity, or calf tenderness. (Jan Leal MD R1 ) Objective Vitals Vital Signs Date Time Temp Pulse Resp B/P Pulse Ox O2 Delivery O2 Flow Rate FiO2 07/11/16 09:56 87 18 107/65 95 07/11/16 09:48 97.7 91 18 105/66 94 07/11/16 09:09 97.6 83 16 121/75 92 07/11/16 08:02 98.0 84 20 106/69 92 07/11/16 04:49 97.6 83 16 121/75 92 07/11/16 00:00 98.3 88 18 128/80 99 07/10/16 20:45 Room Air 07/10/16 20:00 98.0 91 18 147/80 95 07/10/16 19:46 95 21 07/10/16 16:15 97.9 76 18 108/67 94 07/10/16 12:13 95 21 07/10/16 12:04 97.5 81 18 126/76 94 I/O 07/10/16 07/10/16 07/10/16 07/11/16 07/11/16 07/11/16 07:00 15:00 23:00 07:00 15:00 23:00 Intake Total 240 ml 840 ml 1240 ml 200 ml Balance 240 ml 840 ml 1240 ml 200 ml Intake Oral 240 ml 840 ml 1240 ml Other 200 ml # Voids 2 4 9 1 # Bowel Movements 0 0 1 0 (Jan Leal MD R1) Result Diagram: 07/08/16 0521 07/10/16 1115 Objective Remarks Gen: 56 y/o F lying in bed in no acute distress. Patient still drowsy post- procedure. Cardio: RRR with no MGR Pulm: CTAB with no CRW ABD: Soft, nontender, nondistended with +BS. No masses appreciated MSK: No edema or cyanosis. No calf tenderness. Neuro: AAOx3. Normal speech. (Jan Leal MD R1) A/P Assessment and Plan Mrs. Najera is a 56 year-old female with seizure disorder admitted 07/07 for an acute seizure. She had an EGD and esophageal dilation secondary to dysphagia on 07/11/16. Discharge Planning Likely today if she tolerates PO post-procedure without complications. (Jan Leal MD R1) Attending Attestation Patient seen and examined. Case reviewed and discussed with the resident team. Agree with plan of care as discussed with me and documented in the resident note. all went well with her dialation and she can follow up with GI as an outpt ( Flor Serrano MD) Problem List: (1) Seizure Status: Acute Plan: Found face-down by in home after syncopal event/suspected seizure. History of seizure disorder, controlled with Depakote and Topamax. Last seizure 4 months ago. Differential: seizure secondary to non-compliance with medications vs subtherapeutic dosing anticonvulsants vs pseudoseizure vs illicit drug use vs alcohol vs infection (lung vs bladder) CBC and CMP grossly within normal limits She has done very well since admission with no seizures Imaging: CT head: unremarkable CT C-spine: slightly neural foramina compromise L C3-C4 CXR: no acute cardiopulmonary disease -EEG: Abnormal study. Occasional sharp activity bilaterally suggesting seizure disorder. -Valproic Acid on admission 39, up to 54 -Neurology consult, known to Dr. Cloud -Increased Depakote to 500mg BID -Clear for DC with 2-3 week follow up -No driving for 6 months -Anticonvulsants -Continue home Depakote 250mg PO TID -Continue home Topiramate 100mg PO BID -Lorazepam 2mg IV PRN uncontrolled seizure -Supportive Care -PT/OT consulted -Seizure precautions (2) Dysphagia Status: Acute Plan: Patient with history of dysphagia s/p 2 esophageal dilations. -ST swallow evaluation: Recommend regular diet with GI consult for dilation -GI consult placed, appreciate recommendations -EGD with esophageal dilation 07/11: Stricture s/p dilation, Possible karin of esophagus, Bx from mid-esophagus and antrum pending, Food in stomach -Clear to discharge with follow-up in 2 weeks as an outpatient. -Follow biopsy results for possible treatment of Karin -If patient continues to have symptoms, esophageal motility and possible gastric emptying studies can be completed as an outpatient (3) Chronic headache Status: Chronic Plan: Coincides with seizures. Headache on admission, improved s/p morphine in ED -Continue Topiramate (see plan seizure) -Tylenol 650mg q6h PRN headache or fever > 100.4 (4) Hypertension Status: Chronic Plan: -Continue atenolol 25mg PO daily (5) Hyperlipidemia Status: Chronic Plan: -Continue Atorvastatin 40mg daily (6) COPD (chronic obstructive pulmonary disease) Status: Chronic Plan: -Hold home Albuterol inhaler and Albuterol NEB. 1-2 PPD. -Duonebs q4h PRN shortness of breath -Smoking cessation counseling provided -Nicotine patch contraindicated while chest pain/ACS rule out in light of vasoconstrictive effects (7) Low back pain Status: Chronic Plan: -Hold home Voltaren gel -Continue home [place] 10-325mg q8h PRN pain 5-10 -Add Miralax daily for bowel regimen- last BM two days ago (8) Numbness and tingling in hands Status: Acute Plan: -Continue Gabapentin 300mg PO TID (9) Hypothyroidism Status: Acute Plan: -Continue Levothyroxine 88mcg PO daily -TSH 1.47 (10) Bipolar disorder Status: Acute Plan: MDD/Bipolar disorder -Continue Duloxetine 30mg BID (11) Anxiety Status: Acute Plan: -Continue home Buspirone 10mg PO BID (12) Insomnia Status: Acute Plan: -Continue Ambien 10mg PO HS PRN insomnia gave sleep hygiene info and she can follow up as an outpt as she complains about sleeping problems at home (13) Fluid, Electrolytes, Nutrition, Prophylaxis Status: Acute Plan: Fluids: encourage PO hydration Electrolytes: monitor and replete as necessary, continue home potassium supplementation Nutrition: Heart healthy diet DVT prophylaxis: SCDs GI prophylaxis: not indicated, continue home Protonix for GERD (Jan Leal MD R1) Problem Qualifiers (1) Dysphagia: Qualified Code: R13.10 - Dysphagia, unspecified type (2) Chronic headache: Qualified Code: R51 - Chronic nonintractable headache, unspecified headache type (3) Hypertension: Qualified Code: I10 - Essential hypertension (4) Hyperlipidemia: Qualified Code: E78.5 - Hyperlipidemia, unspecified hyperlipidemia type (5) COPD (chronic obstructive pulmonary disease): Qualified Code: J44.9 - Chronic obstructive pulmonary disease, unspecified COPD type (6) Low back pain: (7) Hypothyroidism: Qualified Code: 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
[2016-07-11] MEDS: busPIRone HCL 10 MG TAB PO SCH (11:05)
[2016-07-11] MEDS: GABAPENTIN 300 MG CAP PO SCH ×3 (11:05→17:22)
[2016-07-11] MEDS: POLYETHYLENE GLYCOL 17 GM PKG PO SCH (11:05)
[2016-07-11] MEDS: DULoxetine HCl DR 30 MG CAP PO SCH (11:05)
[2016-07-11] MEDS: ATENOLOL 25 MG TAB PO SCH (11:06)
[2016-07-11] MEDS: DIVALPROEX SODIUM E.R. 500 MG TAB PO SCH (11:06)
[2016-07-11] MEDS: CYCLOBENZAPRINE HCL 10 MG TAB PO SCH ×3 (11:06→17:22)
[2016-07-11] MEDS: PANTOPRAZOLE SOD 20 MG DELAYED RELEASE TAB PO SCH (11:07)
[2016-07-11] MEDS: POTASSIUM CHLORIDE 10 MEQ CONTROLLED RELEASE TAB PO SCH (11:07)
[2016-07-11] MEDS: TOPIRAMATE 100 MG TAB PO SCH (11:07)
[2016-07-11] MEDS: SODIUM CHLORIDE 0.9% FLUSH 5 ML FLUSH IVF SCH (11:14)
--- NOTE | 2016-07-11 13:58 | HHI.DCPOC ---
Discharge Care Plan Diagnosis: (1) Dysphagia (2) Seizure Goals to Promote Your Health * To prevent worsening of your condition and complications * To maintain your health at the optimal level Directions to Meet Your Goals Take your medications as prescribed Follow your dietary instruction Follow activity as directed Keep your appointments as scheduled Take your immunizations and boosters as scheduled If your symptoms worsen call your PCP, if no PCP go to Urgent Care Center or Emergency Room Smoking is Dangerous to Your Health. Avoid second hand smoke Call the 24-hour hour crisis hotline for domestic abuse at Jan Leal MD R1 Jul 11, 2016 13:58
[2016-07-11] MEDS ORDERED: DEPA500T3 PO (14:04)
[2016-07-21] MEDS ORDERED: FLUC200T2 PO (14:32)
[2016-08-09] MEDS ORDERED: BUSP30TA PO (10:47)
[2016-08-09] MEDS ORDERED: VENL75XR PO (14:03)
[2016-08-09] MEDS ORDERED: DEPA250T2 PO (14:07)
[2016-08-09] MEDS ORDERED: LEVE250 PO (14:08)
--- NOTE | 2016-08-18 18:48 | HHI.DS ---
Discharge Summary Admission Date Jul 07, 2016 at 23:04 Discharge Date: Jul 11, 2016 Admitting Diagnosis chest pain, syncope/seizure disorder (1) Seizure Diagnosis: Principal Plan: Found face-down by in home after syncopal event/suspected seizure. History of seizure disorder, controlled with Depakote and Topamax. Last seizure 4 months ago. Differential: seizure secondary to non-compliance with medications vs subtherapeutic dosing anticonvulsants vs pseudoseizure vs illicit drug use vs alcohol vs infection (lung vs bladder) CBC and CMP grossly within normal limits She has done very well since admission with no seizures Imaging: CT head: unremarkable CT C-spine: slightly neural foramina compromise L C3-C4 CXR: no acute cardiopulmonary disease -EEG: Abnormal study. Occasional sharp activity bilaterally suggesting seizure disorder. -Valproic Acid on admission 39, up to 54 -Neurology consult, known to Dr. Cloud -Increased Depakote to 500mg BID -Clear for DC with 2-3 week follow up -No driving for 6 months -Anticonvulsants -Continue home Depakote 250mg PO TID -Continue home Topiramate 100mg PO BID -Lorazepam 2mg IV PRN uncontrolled seizure -Supportive Care -PT/OT consulted -Seizure precautions (2) Dysphagia Diagnosis: Principal Plan: Patient with history of dysphagia s/p 2 esophageal dilations. -ST swallow evaluation: Recommend regular diet with GI consult for dilation -GI consult placed, appreciate recommendations -EGD with esophageal dilation 07/11: Stricture s/p dilation, Possible karin of esophagus, Bx from mid-esophagus and antrum pending, Food in stomach -Clear to discharge with follow-up in 2 weeks as an outpatient. -Follow biopsy results for possible treatment of Karin -If patient continues to have symptoms, esophageal motility and possible gastric emptying studies can be completed as an outpatient (3) Chronic headache Diagnosis: Secondary Plan: Coincides with seizures. Headache on admission, improved s/p morphine in ED -Continue Topiramate (see plan seizure) -Tylenol 650mg q6h PRN headache or fever > 100.4 (4) Hypertension Diagnosis: Secondary Plan: -Continue atenolol 25mg PO daily (5) Hyperlipidemia Diagnosis: Secondary Plan: -Continue Atorvastatin 40mg daily (6) COPD (chronic obstructive pulmonary disease) Diagnosis: Secondary Plan: -Hold home Albuterol inhaler and Albuterol NEB. 1-2 PPD. -Duonebs q4h PRN shortness of breath -Smoking cessation counseling provided -Nicotine patch contraindicated while chest pain/ACS rule out in light of vasoconstrictive effects (7) Low back pain Diagnosis: Secondary Plan: -Hold home Voltaren gel -Continue home [place] 10-325mg q8h PRN pain 5-10 -Add Miralax daily for bowel regimen- last BM two days ago (8) Numbness and tingling in hands Diagnosis: Secondary Plan: -Continue Gabapentin 300mg PO TID (9) Hypothyroidism Diagnosis: Secondary Plan: -Continue Levothyroxine 88mcg PO daily -TSH 1.47 (10) Bipolar disorder Diagnosis: Secondary Plan: MDD/Bipolar disorder -Continue Duloxetine 30mg BID (11) Anxiety Diagnosis: Secondary Plan: -Continue home Buspirone 10mg PO BID (12) Insomnia Diagnosis: Secondary Plan: -Continue Ambien 10mg PO HS PRN insomnia gave sleep hygiene info and she can follow up as an outpt as she complains about sleeping problems at home (13) Fluid, Electrolytes, Nutrition, Prophylaxis Diagnosis: Principal Plan: Fluids: encourage PO hydration Electrolytes: monitor and replete as necessary, continue home potassium supplementation Nutrition: Heart healthy diet DVT prophylaxis: SCDs GI prophylaxis: not indicated, continue home Protonix for GERD Brief History Ms Ivory is a 56 year-old female with seizure disorder, history of CVA with chronic R-sided weakness, and tobacco use who presented to the ED with chest pain and syncopal event with a seizure. Reports non-radiating epigastric pain, worse with inspiration, began at 6 PM while riding in the car. She stated she "can tell when she's going to have a seizure" as she has a recognizable prodrome. She laid down at home and found her face-down in bedroom on the floor. He was concerned she was not breathing, called EMS, and performed short amount of chest compressions and rescue breathing on his own without the ambulance being there. Pt reportedly confused and not speaking for 20 minutes after her seizure. Denies biting tongue, bowel or bladder incontinence, focal neurological deficits, or acute injury. She remembers feeling like she was about o have her seizure and lying down then she "was shaking all over and could not speak" and then lost consciousness which is similar to past seizures. It is unclear that she was having respiratory problems vs just her respiratory pattern with her seizure. She did wake up afterwards and remembers the later events and is back to normal with no seizures here in the ED. Epigastric pain improved after aspirin, nitroglycerin, and morphine in the ED, but still "comes and goes". Endorses occipital headache with light sensitivity that is similar to migraines she normally gets with seizures. Follows with Dr Cloud for seizure disorder, last reported seizure 4 months ago, endorses compliance with home Depakote and Topamax. Denies recent alcohol/ illicit drug use, respiratory illness, or inciting factor for seizure. However , has not been eating much lately secondary to dysphagia. Reports history of "esophageal rings" needing dilation and endorsed only had water and coffee prior to her syncopal event. She is very hungry now and requests normal food for breakfast. She is complaining of her chronic pain as well as the headache this am. Her troponins were unremarkable. PE at Discharge Gen: 56 y/o F lying in bed in no acute distress. Patient still drowsy post- procedure. Cardio: RRR with no MGR Pulm: CTAB with no CRW ABD: Soft, nontender, nondistended with +BS. No masses appreciated MSK: No edema or cyanosis. No calf tenderness. Neuro: AAOx3. Normal speech. Hospital Course Patient was admitted to the medical service s/p seizure. CT head was unremarkable and CT spine showed slightly narrow foramina compromise in C3-C4. EEG showed occasional sharp activity bilaterally suggesting seizure disorder. Valproic acid found to be 39 and neurology was consulted and recommended her Depakote be increased to 500 twice a day as well as continuing her topiramate. Also during her hospitalization she complained of dysphagia therefore GI was consulted. EGD was performed and showed stricture with possible karin of the esophagus. Biopsies from the mid esophagus and antrum of the stomach are pending. Patient to follow-up in 2 weeks as an outpatient with GI and neurology as well as her PCP. Patient was then discharged home on 07/11/[address] with instructions not to drive for at least 6 months post seizure. Pt Condition on Discharge: Stable Discharge Disposition: Discharge Home Discharge Instructions DIET: Follow Instructions for: As Tolerated, No Restrictions Activities you can perform: See Additionl Instruction Other Activity Instructions: Patient instructed not to drive for 6 months s/p seizure. Advised follow up with PCP, Neurology, and GI in 1-2 weeks. Follow up Referrals: Appointment for Follow Up - 1 Week Gastroenterology - 2 Weeks Neurology - 2 Weeks Continued Medications: Albuterol 18 GM Inh (Ventolin Hfa 18 GM Inh) 90 Mcg/Act Aer 2 PUFF INH Q4-6H PRN SHORTNESS OF BREATH #1 Ref 0 INHALER Albuterol Neb (Albuterol Neb) 2.5 Mg/3 Ml Neb 2.5 MG NEB QID NEB Breathing Treatment #60 Ref 0 NEBULE Atenolol (Atenolol) 25 Mg Tab 25 MG PO DAILY Blood Pressure Management #90 Ref 3 TAB Atorvastatin (Atorvastatin) 40 Mg Tab 40 MG PO HS Cholesterol Management #30 Ref 11 TAB Cyclobenzaprine (Flexeril) 10 Mg Tab 10 MG PO TID Muscle Spasm #60 Ref 0 TAB Diclofenac Topical (Voltaren Topical) 1% Gel 1 APPLIC TOPICAL TID Apply to affected area Pain Management #100 Ref 0 GM Diclofenac Topical (Diclofenac Topical) 1% Gel 1 APPLIC TOPICAL BID Pain Management #100 Ref 0 GM Gabapentin (Gabapentin) 300 Mg Cap 300 MG PO TID #270 Ref 3 CAP Hydrocodone-Acetaminophen ([place]) 10-325 Mg Tab 1 TAB PO TID PRN PAIN Ref 0 TAB Levothyroxine (Levothyroxine) 88 Mcg Tab 88 MCG PO DAILY Thyroid #90 Ref 3 TAB Omeprazole (Omeprazole) 20 Mg Tab 20 MG PO DAILY #90 Ref 3 TAB Potassium Chloride ER (Potassium Chloride CR) 10 Meq Tab 20 MEQ PO DAILY TAB Ropinirole (Ropinirole) 0.5 Mg Tab 0.5 MG PO TID #90 Ref 0 TAB Topiramate (Topiramate) 100 Mg Tab 100 MG PO BID Control Seizures #60 Ref 0 TAB Zolpidem (Ambien) 10 Mg Tab 10 MG PO HS PRN INSOMNIA #30 Ref 1 TAB Discontinued Medications: Divalproex DR (Divalproex DR) 250 Mg Tabdr 250 MG PO TID Control Seizures #60 Ref 0 TAB Jan Leal MD R1 Aug 18, 2016 18:48
[2016-08-23] MEDS ORDERED: AMBI10TA PO (11:08)
[2016-09-15] MEDS ORDERED: POTA10TA8 PO (18:32)
[2016-09-23] MEDS ORDERED: AMBI10TA PO (11:57)
[2016-09-29] MEDS ORDERED: VENL75XR PO (09:15)
[2016-10-11] MEDS ORDERED: BUSP15TA PO (10:16)
[2016-10-11] MEDS ORDERED: VENL150C39 PO (10:16)
[2016-10-25] MEDS ORDERED: AMBI10TA PO (07:10)
[2016-11-02] MEDS ORDERED: LEVE500 PO (15:52)
[2016-11-02] MEDS ORDERED: TOPA100T11 PO (15:52)
[2016-11-02] MEDS ORDERED: POTA-163 PO (15:52)
== END 2016-07-11 18:21 | disposition home or self-care (01) | DRG 101 ==
LOC: NEPC 20:45 → NEDA 23:04 → NEDH 07-08 04:39 → N04B 07-08 16:02
PROVIDERS: ADMIT Family Medicine; ATTEND Family Medicine
PROC: 0DB68ZX Excision of Stomach, Via Natural or Artificial Opening Endoscopic, Diagnostic (ICD-10-PCS; 2016-07-11)
PROC: 0D738ZZ Dilation of Lower Esophagus, Via Natural or Artificial Opening Endoscopic (ICD-10-PCS; 2016-07-11)
PROC: 0DB58ZX Excision of Esophagus, Via Natural or Artificial Opening Endoscopic, Diagnostic (ICD-10-PCS; principal; 2016-07-11 09:09)
DX: G40.409 Other generalized epilepsy and epileptic syndromes, not intractable, without status epilepticus (principal); B37.81 Candidal esophagitis; I69.351 Hemiplegia and hemiparesis following cerebral infarction affecting right dominant side; R13.10 Dysphagia, unspecified; K22.2 Esophageal obstruction; J44.9 Chronic obstructive pulmonary disease, unspecified; I10 Essential (primary) hypertension; F31.70 Bipolar disorder, currently in remission, most recent episode unspecified; G43.909 Migraine, unspecified, not intractable, without status migrainosus; G89.4 Chronic pain syndrome; J45.909 Unspecified asthma, uncomplicated; M19.90 Unspecified osteoarthritis, unspecified site; G47.00 Insomnia, unspecified; G47.30 Sleep apnea, unspecified; Z79.82 Long term (current) use of aspirin; F41.9 Anxiety disorder, unspecified; F17.210 Nicotine dependence, cigarettes, uncomplicated; M54.5 Low back pain; M54.16 Radiculopathy, lumbar region; E89.0 Postprocedural hypothyroidism; K21.9 Gastro-esophageal reflux disease without esophagitis; E78.5 Hyperlipidemia, unspecified; R63.4 Abnormal weight loss; Z86.010 Personal history of colon polyps; K64.8 Other hemorrhoids; Z80.2 Family history of malignant neoplasm of other respiratory and intrathoracic organs; Z82.49 Family history of ischemic heart disease and other diseases of the circulatory system; K29.70 Gastritis, unspecified, without bleeding; K59.00 Constipation, unspecified
CPT/HCPCS: 70450; 71010; 72125; 80048; 80053; 80061; 80164; 80307; 80320; 81001; 82550; 82552; 83690; 83735; 84443; 84484; 85025; 85610; 85730; 86803; 88305; 93005; 94640; 94664; 95819; 96374; 96375; C1769; J2270; J2405; J7030; J7040

== ENCOUNTER → 2016-11-03 | Outpatient (CLI) | payer OTHER ==
[~2016-11-03] VITALS: Ht 167.6 cm; Wt 68.6 kg
[~2016-11-03] MED LIST changes: +*morphine SULFATE 8 MG/ML PERIprocedure ONLY ONE; +AMOX500T PO; -BUSP10TA PO; +CHLORHEXIDINE GLUCONATE 2 % 1 PACK (2 CLOTHS) TOPICAL PRN; +DEPA250T2 PO; -DICL1GEL TOPICAL; +DICL1GEL7 TOPICAL; -DIVA250T PO; +DO NOT ADM ANY ANTICOAGULANT DRUGS PRN; -DULO1CAP2 PO; +INSULIN HUMAN REGULAR 1,000 UNITS/10 ML VIAL SQ PRN; +LACTATED RINGER'S 1000 ML IV PRN; +LEVE500 PO; +METOPROLOL TARTRATE 25 MG TAB PO PRN; +NAPH1DRO EACH EYE; +POTA-163 PO; -POTA10TA8 PO; +POVIDONE IODINE 5% (ANTISEPSIS KIT) 4 APPLICATIONS EACH NARE PRN; +PROPOFOL 200 MG/20 ML AMP IV ONE; +SODIUM CHLORID 0.9% 500 ML IV PRN; +TOPA100T11 PO; -TOPI1TAB31 PO; +VENL150C39 PO
[2016-11-03 10:59] VITALS: BP 97/58; PULSE 72; RESP 18; TEMP 98.9; O2SAT 94
--- NOTE | 2016-11-03 12:55 | GIPROC ---
[facility] [address] [facility], [address] EGD PROCEDURE REPORT EXAM DATE: 11/03/2016 PATIENT NAME: Radha Najera MR#: [id number] BIRTHDATE: 1960 STATUS: outpatient ATTENDING: Rafael Abarca MD VISIT ID: [id number] SAMPLE TESTER: Juan Church and Niko Dumas ORDER #: [id number] INDICATIONS: The patient is a 56 yr old female here for an EGD due to dysphagia. PROCEDURE PERFORMED: EGD w/ biopsy and EGD w/ dilation of esophagus via guidewire MEDICATIONS: Per Anesthesia and None. ASA CLASS: Class II PHYSICAL EXAM: normal CONSENT: The patient understands the risks and benefits of the procedure and understands that these risks include, but are not limited to: sedation, allergic reaction, infection, perforation and/or bleeding. Alternative means of evaluation and treatment include, among others: physical exam, x-rays, and/or surgical intervention. The patient elects to proceed with this endoscopic procedure. DESCRIPTION OF PROCEDURE: for proper function. Hand hygiene and appropriate measures for infection prevention was taken. After the risks, benefits and alternatives of the procedure were thoroughly explained, Informed consent was verified, confirmed and timeout was successfully executed by the treatment team. The [employer] [id number] endoscope was introduced through the mouth and advanced to the second portion of the duodenum. The instrument was slowly withdrawn as the mucosa was fully examined. ESOPHAGUS: A mildly severe Schatzki ring was found in the distal esophagus and at the gastroesophageal junction. Multiple biopsies were performed using cold forceps. Sample sent for histology. The esophagus was otherwise normal. Multiple biopsies were performed. STOMACH: There was mild gastritis in the gastric body. Multiple biopsies were performed. The stomach otherwise appeared normal. DUODENUM: The duodenal mucosa appeared normal in the bulb and second portion of the duodenum. Retroflexed views revealed a hiatal hernia The gastroscope was then slowly withdrawn and removed. COMPLICATIONS: There were no complications. IMPRESSIONS: 1. Schatzki ring was found in the distal esophagus and at the gastroesophageal junction; multiple biopsies were performed 2. The esophagus was otherwise normal; multiple biopsies were performed 3. There was mild gastritis in the gastric body; multiple biopsies were performed 4. The stomach otherwise appeared normal 5. Normal duodenal mucosa in the bulb and second portion of the duodenum 6. Retroflexed views revealed a hiatal hernia RECOMMENDATIONS: 1. Await biopsy results. Biopsy results will not be ready for 7-10 days. If you don't hear from us in two weeks, call our office for biopsy results. 2. Continue PPI 3. Dilatations PRN 4. Avoid NSAIDS PATIENT CONDITION: fair DISPOSITION: Home REPEAT EXAM: Rafael Abarca MD eSigned: Rafael Abarca MD 11/03/2016 12:55 PM cc: PATIENT NAME: Radha Najera MR#: [id number]
[2016-11-03 14:30] VITALS: BP 113/71; PULSE 67; RESP 18; TEMP 97; O2SAT 97
== END ==
LOC: HEND 10:26
PROVIDERS: ATTEND Internal Medicine Gastroenterology
DX: R13.10 Dysphagia, unspecified (principal); K22.2 Esophageal obstruction; K29.70 Gastritis, unspecified, without bleeding; K44.9 Diaphragmatic hernia without obstruction or gangrene
CPT/HCPCS: 00740; 43239; 43248; 82948; 88305; C1769; J2270; J7120; 88312

== ENCOUNTER 2016-12-08 13:56 | Emergency (ER) | payer OTHER ==
[~2016-12-08] VITALS: Ht 167.6 cm; Wt 70.0 kg
[~2016-12-08 13:56] MED LIST changes: -*morphine SULFATE 8 MG/ML PERIprocedure ONLY ONE; +ADVA250A INH; -AMOX500T PO; -CHLORHEXIDINE GLUCONATE 2 % 1 PACK (2 CLOTHS) TOPICAL PRN; +CIPR500T2 PO; -CYCL1TAB29 PO; -DO NOT ADM ANY ANTICOAGULANT DRUGS PRN; -INSULIN HUMAN REGULAR 1,000 UNITS/10 ML VIAL SQ PRN; +KEPP750T PO; -LACTATED RINGER'S 1000 ML IV PRN; -LEVE500 PO; -METOPROLOL TARTRATE 25 MG TAB PO PRN; +PHEN0.4T PO; -POVIDONE IODINE 5% (ANTISEPSIS KIT) 4 APPLICATIONS EACH NARE PRN; -PROPOFOL 200 MG/20 ML AMP IV ONE; -SODIUM CHLORID 0.9% 500 ML IV PRN
[2016-12-08 13:57] VITALS: BP 132/82; PULSE 78; RESP 24; TEMP 98.2; O2SAT 99
--- NOTE | 2016-12-08 14:01 | PD ---
Physical Exam Time Seen by Provider: 14:00 Narrative 56 y/o female here with 3 days of h/a, generalized weakness, fatigue, decreased appetite, auditory/visual hallucinations. Vital signs reviewed. seen at triage desk. Awaiting bed placement. Data Data Last Documented VS Vital Signs Date Time Temp Pulse Resp B/P Pulse Ox O2 Delivery O2 Flow Rate FiO2 12/08/16 13:57 98.2 78 24 132/82 99 Room Air [facility] Medical Record Reviewed: Yes Supervised Visit with BRADY: Hany Rich Dec 08, 2016 14:01
--- NOTE | 2016-12-08 15:10 | PD ---
HPI Chief Complaint: Altered Mental Status Time Seen by Provider: 14:54 Travel History International Travel<30 days: No Contact w/Intl Traveler<30days: No Traveled to known affect area: No History of Present Illness HPI 56yo F with PMH of seizure disorder on keppra and topiramate, depression, anxiety, chronic neck and back pain and follows with pain management Dr. Cloud, restless leg syndrome, peripheral neuropathy presents to the ED with c /o visual hallucination, auditory hallucination, blurry vision and inability to sleep for 3 days. Pt is on zolpidem for sleep but states it is not helping. Denies any fever, chest pain, sob, n/v, abdominal pain, focal weakness. Pt states she went to Dr. Cloud's office today and was sent to the ED. PFSH Past Medical History Hx Anticoagulant Therapy: Yes (ASA) Arthritis: Yes Asthma: Yes Autoimmune Disease: No Bipolar Disorder: Yes Anxiety: Yes Depression: Yes Heart Rhythm Problems: No Cancer: No Cardiovascular Problems: No High Cholesterol: No Chemotherapy: No Chest Pain: No Congestive Heart Failure: No COPD: Yes Cerebrovascular Accident: Yes Diabetes: No Diminished Hearing: No Endocrine: No Gastrointestinal Disorders: Yes (acid reflux) GERD: No Genitourinary: No Headaches: Yes Hepatitis: No Hiatal Hernia: No Herniated Disk: Yes Hypertension: Yes Immune Disorder: No Implanted Vascular Access Dvce: Yes Insomnia: Yes Kidney Stones: No Musculoskeletal: Yes (back pain) Neurologic: Yes (seizures, right sided weakness) Psychiatric: Yes (anx/depression) Reproductive: No Respiratory: Yes Migraines: Yes Radiation Therapy: No Renal Failure: No Seizures: Yes (Currently taking tegretol and topamax) Sickle Cell Disease: No Sleep Apnea: No Thyroid Disease: Yes Ulcer: No Tetanus Vaccination: > 5 Years Influenza Vaccination: No ?: Not : 5 Para: 5 Past Surgical History Abdominal Surgery: No AICD: No Arteriovenous Shunt: No Body Medical Devices: rods and screws in back Cardiac Surgery: No Ear Surgery: No Endocrine Surgery: No Eye Surgery: No Genitourinary Surgery: No Gynecologic Surgery: Yes (hysterectomy) Hysterectomy: Yes Insulin Pump: No Joint Replacement: No Neurologic Surgery: Yes (back surgery) Oral Surgery: Yes (esophageal banding, tonsillectomy) Pacemaker: No Thoracic Surgery: No Tonsillectomy: Yes Other Surgery: Yes (esophageal dilation) Social History Alcohol Use: No (pt denies ) Tobacco Use: Yes (1PPD) Substance Use: No (pt denies) Allergies-Medications (Allergen,Severity, Reaction): Coded Allergies: No Known Allergies (Unverified , 12/08/16) Reported Meds & Prescriptions Reported Meds & Active Scripts Active Ambien (Zolpidem Tartrate) 10 Mg Tab 10 Mg PO HS PRN Ventolin Hfa 18 GM Inh (Albuterol Sulfate) 90 Mcg/Act Aer 2 Puff INH Q4-6H PRN Advair Diskus Inh (Fluticasone-Salmeterol Inh) 250-50 Mcg/Blist Aer 1 Puff INH BID Rinse mouth after use. Clear Eyes Cooling Comfort Opth Drops (Naphazoline-Glycerin Opth Drops) 0.5- 0.03 % Soln 2 Drop EACH EYE QID Venlafaxine ER 24 HR (Venlafaxine HCl) 150 Mg Cap 150 Mg PO DAILY Atenolol 25 Mg Tab 25 Mg PO DAILY Gabapentin 300 Mg Cap 300 Mg PO TID Levothyroxine (Levothyroxine Sodium) 88 Mcg Tab 88 Mcg PO DAILY Omeprazole 20 Mg Tab 20 Mg PO DAILY Atorvastatin (Atorvastatin Calcium) 40 Mg Tab 40 Mg PO HS Albuterol Neb (Albuterol Sulfate) 2.5 Mg/3 Ml Neb 2.5 Mg NEB QID NEB Reported Keppra (Levetiracetam) 750 Mg Tab 750 Mg PO TID Potassium Chloride ER (Potassium Chloride) 20 Meq Tab 20 Meq PO DAILY Topamax (Topiramate) 100 Mg Tab 100 Mg PO BID Depakote DR (Divalproex Sodium) 250 Mg Tabdr 250 Mg PO TID Diclofenac Topical 1% Gel 1 Applic TOPICAL BID Ropinirole 0.5 Mg Tab 0.5 Mg PO TID [place] (Hydrocodone-Acetaminophen) 10-325 Mg Tab 1 Tab PO TID PRN Review of Systems Except as stated in HPI: all other systems reviewed are Neg Physical Exam Narrative GENERAL: 56yo F not SKIN: Focused skin assessment warm/dry. HEAD: Atraumatic. Normocephalic. EYES: Pupils equal and round. No scleral icterus. No injection or drainage. ENT: No nasal bleeding or discharge. Mucous membranes pink and moist. NECK: Trachea midline. No JVD. CARDIOVASCULAR: Regular rate and rhythm. No murmur appreciated. RESPIRATORY: No accessory muscle use. Clear to auscultation. Breath sounds equal bilaterally. GASTROINTESTINAL: Abdomen soft, non-tender, nondistended. Hepatic and splenic margins not palpable. MUSCULOSKELETAL: No obvious deformities. No clubbing. No cyanosis. No edema. NEUROLOGICAL: Awake and alert. No obvious cranial nerve deficits. Motor grossly within normal limits. Normal speech. PSYCHIATRIC: Appropriate mood and affect; insight and judgment normal. Data Data Last Documented VS Vital Signs Date Time Temp Pulse Resp B/P Pulse Ox O2 Delivery O2 Flow Rate FiO2 12/09/16 06:30 98.3 72 16 163/[address] Brain W/O Iv Contrast(Rout) (12/08/16 ) Complete Blood Count With Diff (12/08/16 15:21) Basic Metabolic Panel (Bmp) (12/08/16 15:21) Valproic Acid (Depakene) (12/08/16 15:21) Topiramate (Topamax) (12/08/16 15:21) Drug Screen, Random Urine (12/08/16 15:21) Psych Screen (12/08/16 15:21) Alcohol (Ethanol) (12/08/16 15:21) Urinalysis - C+S If Indicated (12/08/16 15:27) Morphine Inj (Morphine Inj) (12/08/16 17:30) Divalproex Dr Jamar Quintanilla) (12/09/16 01:45) Levetiracetam (Keppra) (12/09/16 01:45) Gabapentin (Neurontin) (12/09/16 01:45) Acetamin-Hydrocod 325-10 Mg ([place] 10-32 (12/09/16 01:45) Topiramate (Topamax) (12/09/16 01:45) Topiramate (Topamax) (12/09/16 07:15) Levetiracetam (Keppra) (12/09/16 07:15) Gabapentin (Neurontin) (12/09/16 07:15) Divalproex Dr Jamar Quintanilla) (12/09/16 07:15) Acetamin-Hydrocod 325-10 Mg ([place] 10-32 (12/09/16 07:15) Diet Regular Basic (12/09/16 Breakfast) Us Kidney/Renal/Bladder (12/09/16 ) Labs Laboratory Tests Test 12/08/16 12/08/16 15:15 15:16 Urine Color YELLOW Urine Turbidity CLEAR Urine pH 5.5 Urine Specific [place] 1.009 Urine Protein NEG mg/dL Urine Glucose (UA) NEG mg/dL Urine Ketones NEG mg/dL Urine Occult Blood SMALL Urine Nitrite NEG Urine Bilirubin NEG Urine Urobilinogen LESS THAN 2.0 MG/DL Urine Leukocyte Esterase NEG Urine RBC 2 /hpf Urine WBC 1 /hpf Urine Squamous Epithelial 1 /hpf Cells Microscopic Urinalysis Comment CULT NOT INDICATED White Blood Count 10.6 TH/MM3 Red Blood Count 4.21 MIL/MM3 Hemoglobin 14.0 GM/DL Hematocrit 40.7 % Mean Corpuscular Volume 96.7 FL Mean Corpuscular Hemoglobin 33.3 PG Mean Corpuscular Hemoglobin 34.4 % Concent Red Cell Distribution Width 13.9 % Platelet Count 250 TH/MM3 Mean Platelet Volume 9.6 FL Neutrophils (%) (Auto) 48.8 % Lymphocytes (%) (Auto) 40.7 % Monocytes (%) (Auto) 8.8 % Eosinophils (%) (Auto) 1.0 % Basophils (%) (Auto) 0.7 % Neutrophils # (Auto) 5.2 TH/MM3 Lymphocytes # (Auto) 4.3 TH/MM3 Monocytes # (Auto) 0.9 TH/MM3 Eosinophils # (Auto) 0.1 TH/MM3 Basophils # (Auto) 0.1 TH/MM3 CBC Comment DIFF FINAL Differential Comment Sodium Level 137 MEQ/L Potassium Level 3.6 MEQ/L Chloride Level 107 MEQ/L Carbon Dioxide Level 21.8 MEQ/L Anion Gap 8 MEQ/L Blood Urea Nitrogen 15 MG/DL Creatinine 0.69 MG/DL Estimat Glomerular Filtration 88 ML/MIN Rate Random Glucose 79 MG/DL Calcium Level 9.1 MG/DL Urine Opiates Screen NEG Urine Barbiturates Screen NEG Valproic Acid (Depakene) Level 52 MCG/ML Urine Amphetamines Screen NEG Urine Benzodiazepines Screen NEG Urine Cocaine Screen NEG Urine Cannabinoids Screen NEG Ethyl Alcohol Level LESS THAN 3 MG/DL MDM Medical Decision Making Medical Screen Exam Complete: Yes Emergency Medical Condition: Yes Differential Diagnosis Psychosis vs. schizophrenia vs. Intracranial mass Narrative Course 56yo F presents to the ED with c/o visual, auditory hallucination for 3 days. I discussed with Yamel the [employer] from Dr. Cloud's office and she said that pt has not had a seizure for a long time and she is concern about these symptoms and send for here for a psychiatric evaluation. I also agreed that symptoms appear psych related. Pt does not have a psychiatrist. Labs reviewed, no leukocytosis. BMP unremarkable. Alcohol negative. Valproic acid level therapeutic. Utox negative. UA negative. CT brain negative. Visual acuity completed. Will have pt follow up with ophthalmology as outpatient. Pt wears eyeglasses sometimes. No trauma. Yamel states that she had receive narcotic while in the hospital but cannot fill any narcotic prescriptions because of the contract with pain management. Will give morphine IM for chronic pain. Pt is voluntary and denies any suicidal or homicidal ideations. Pt is medically clear for psych evaluation. Diagnosis Primary Impression: Psychosis Qualified Code: F29 - Psychosis, unspecified psychosis type Brisa Cespedes DO Dec 08, 2016 15:10
[2016-12-08 16:00] VITALS: BP 126/83; PULSE 76; RESP 17; TEMP 97.8; O2SAT 99
[2016-12-08 16:08] LABS: AUTOMATED NEUTROPHIL # 5.2 TH/MM3 (1.8-7.7); BASOPHIL # 0.1 TH/MM3 (0-0.2); BASOPHIL % 0.7 % (0.0-2.0); EOSINOPHIL # 0.1 TH/MM3 (0-0.4); HEMATOCRIT 40.7 % (35.0-46.0); HEMO FLAGS DIFF FINAL; LYMPH % 40.7 % (9.0-44.0); LYMPHOCYTE # 4.3 TH/MM3 (1.0-4.8); MEAN CELL VOLUME 96.7 FL (80.0-100.0); MEAN CORPUSCULAR HEMOGLOBIN 33.3 PG (27.0-34.0); MEAN CORPUSCULAR HGB CONC 34.4 % (32.0-36.0); MONO % 8.8 % (0.0-8.0); NEUT % 48.8 % (16.0-70.0); PLATELET COUNT 250 TH/MM3 (150-450); RED BLOOD COUNT 4.21 MIL/MM3 (4.00-5.30); RED CELL DISTRIBUTION WIDTH 13.9 % (11.6-17.2); WHITE BLOOD COUNT 10.6 TH/MM3 (4.0-11.0)
[2016-12-08 16:15] LABS: AMPHETAMINE, URINE NEG (NEG); BARBITURATES, URINE NEG (NEG); COCAINE, URINE NEG (NEG)
--- NOTE | 2016-12-08 16:24 | RADRPT ---
EXAM DATE/TIME: 12/08/2016 16:12 [facility] COMPARISON: CT BRAIN W/O CONTRAST, July 07, 2016, 21:22. INDICATIONS : Patient has headaches with altered mental status. RADIATION DOSE: 30.71 CTDIvol (mGy) MEDICAL HISTORY : Seizures. Hypertension. Syncope. SURGICAL HISTORY : Hysterectomy. ENCOUNTER: Initial ACUITY: 3 days PAIN SCALE: 6/10 LOCATION: Bilateral cranial TECHNIQUE: Multiple contiguous axial images were obtained of the head. Using automated exposure control and adj ustment of the mA and/or kV according to patient size, radiation dose was kept as low as reasonably a chievable to obtain optimal diagnostic quality images. DICOM format image data is available electro nically for review and comparison. FINDINGS: CEREBRUM: The ventricles are normal for age. No evidence of midline shift, mass lesion, hemorrhage or acute in farction. No extra-axial fluid collections are seen. POSTERIOR FOSSA: The cerebellum and brainstem are intact. The 4th ventricle is midline. The cerebellopontine angle i s unremarkable. EXTRACRANIAL: The visualized portion of the orbits is intact. SKULL: The calvaria is intact. No evidence of skull fracture. CONCLUSION: Normal examination for a patient of this age. No significant change has occurred. Salo Webster MD on December 08, 2016 at 16:20 Board Certified Radiologist. This report was verified electronically.
[2016-12-08 16:30] LABS: BLOOD, URINE SMALL (NEG); COMMENT (UR) CULT NOT INDICATED; CULTURE IF INDICATED CULT NOT INDICATED; GLUCOSE,URINE NEG (NEG); KETONE, URINE NEG (NEG); NITRITE,URINE NEG (NEG); PH, URINE 5.5 (5.0-8.5); SQUAMOUS EPITHELIAL CELL URINE 1 /hpf (0-5); URINE COLOR YELLOW (YELLW/STRAW)
[2016-12-08 16:33] LABS: ANION GAP 8 MEQ/L (5-15); BICARBONATE 21.8 MEQ/L (21.0-32.0); BLOOD UREA NITROGEN 15 MG/DL (7-18); CHLORIDE 107 MEQ/L (98-107); GLOMERULAR FILTRATION RATE 88 ML/MIN (>89); POTASSIUM 3.6 MEQ/L (3.5-5.1); SODIUM (NA) 137 MEQ/L (136-145)
[2016-12-08] MEDS ORDERED: MORPHINE SULFATE 4 MG/ML INJ IM ONE (17:30)
[2016-12-08 17:37] VITALS: BP 111/66; PULSE 67; RESP 17; TEMP 97.8; O2SAT 99
[2016-12-08 19:40] VITALS: BP 142/78; PULSE 81; RESP 16; TEMP 98.2; O2SAT 99
[2016-12-09 01:00] VITALS: BP 156/77; PULSE 86; RESP 16; O2SAT 97
[2016-12-09] MEDS ORDERED: GABAPENTIN 300 MG CAP PO ONE ×2 (01:45→07:15)
[2016-12-09] MEDS ORDERED: levETIRAcetam 250 MG TAB PO ONE ×2 (01:45→07:15)
[2016-12-09] MEDS ORDERED: ACETAMINOPHEN/HYDROcodone 325 MG/10 MG TAB PO ONE ×3 (01:45→13:45)
[2016-12-09] MEDS ORDERED: DIVALPROEX SODIUM DELAYED RELEASE 250 MG TAB PO ONE ×2 (01:45→07:15)
[2016-12-09] MEDS ORDERED: TOPIRAMATE 100 MG TAB PO ONE ×2 (01:45→07:15)
[2016-12-09 06:30] VITALS: BP 163/77; PULSE 72; RESP 16; TEMP 98.3; O2SAT 98
--- NOTE | 2016-12-09 11:04 | RADRPT ---
EXAM DATE/TIME: 12/09/2016 10:14 [facility] COMPARISON: No previous studies available for comparison. INDICATIONS : Hematuria. MEDICAL HISTORY : Thyroid disease. Seizures. CVA. Syncope. Migraine. Hypertension. Asthma. GERD. PTSD. SURGICAL HISTORY : Tonsillectomy. Esophagel banding. ENCOUNTER: Initial ACUITY: 4-6 days PAIN SCORE: 0/10 LOCATION: Bilateral flank MEASUREMENTS: RIGHT KIDNEY: 10.1 x 4.4 x 4.6 cm LEFT KIDNEY: 10.3 x 4.5 x 6.1 cm FINDINGS: RIGHT KIDNEY: Renal cortex is normal in thickness and echotexture. No hydronephrosis, stone, or mass. LEFT KIDNEY: Renal cortex is normal in thickness and echotexture. No hydronephrosis, stone, or mass. BLADDER: Within normal limits given the degree of distension. CONCLUSION: 1. Unremarkable renal ultrasound examination. No obstructive uropathy or significant renal calculi. Phoenix Armendariz MD on December 09, 2016 at 11:00 Board Certified Radiologist. This report was verified electronically.
[2016-12-09 12:00] VITALS: BP 158/83; PULSE 68; RESP 16; O2SAT 98
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
[2016-12-20] MEDS ORDERED: ADVA250A INH (14:07)
[2016-12-20] MEDS ORDERED: TRAZ50TA12 PO (14:16)
== END 2016-12-09 15:25 | disposition home or self-care (01) ==
LOC: NEPD 13:56
DX: F29 Unspecified psychosis not due to a substance or known physiological condition (principal); F43.20 Adjustment disorder, unspecified; G40.909 Epilepsy, unspecified, not intractable, without status epilepticus; G25.81 Restless legs syndrome; G62.9 Polyneuropathy, unspecified; I10 Essential (primary) hypertension; J44.9 Chronic obstructive pulmonary disease, unspecified; R56.9 Unspecified convulsions; E07.9 Disorder of thyroid, unspecified
CPT/HCPCS: 70450; 76775; 80048; 80164; 80201; 80307; 81001; 85025; 96372; 99285; J2270

== ENCOUNTER → 2016-12-30 | Outpatient (CLI) | payer OTHER ==
[~2016-12-30] MED LIST changes: -AMBI10TA PO; -CIPR500T2 PO; +FLUT1SPR5 EACH NARE; +IBUP400T20 PO; +LEVE500 PO; -PHEN0.4T PO; +PRED20 PO; +SERT-129 PO; +SERT-132 PO; +TRAZ100T6 PO; +TRAZ50TA12 PO; +ZOLO50TA PO
--- NOTE | 2017-01-03 11:07 | RSPPFT ---
DATE OF PROCEDURE: 12/30/16 COMMENTS: The forced vital capacity is borderline normal. The FEV1 and FEF 25-75 are both moderately reduced. The FEV1/FVC ratio is reduced. IMPRESSION: This is compatible with moderate, large and small airways, obstructive lung disese.
== END ==
LOC: HRSP 11:59
PROVIDERS: ATTEND Family Medicine
DX: J44.9 Chronic obstructive pulmonary disease, unspecified (principal)
CPT/HCPCS: 94060

== ENCOUNTER → 2017-02-15 | Outpatient (CLI) | payer OTHER ==
[~2017-02-15] MED LIST changes: -KEPP750T PO; -SERT-129 PO; -SERT-132 PO; -TRAZ50TA12 PO; -VENL150C39 PO
[2017-02-15 14:24] LABS: BLOOD GAS BASE EXCESS -2.9 mmol/L (-2-2); BLOOD GAS CARBOXYHEMOGLOBIN 5.4 % (0-4); BLOOD GAS HCO3 22 mmol/L (22-26); BLOOD GAS METHEMOGLOBIN 1.4 % (0-2); BLOOD GAS O2 HGB SATURATION 89 % (90-100); BLOOD GAS OXYGEN CONTENT 15.9 Vol % (12.0-20.0); BLOOD GAS PCO2 43 mmHg (38-42); BLOOD GAS PO2 84 mmHg (61-120); BLOOD GAS TOTAL HGB 12.6 G/DL (12.0-16.0); TEMP CORR TO 98.6
[2017-02-15 14:25] LABS: CRITICAL VALUE YES; DRAW SITE RT RADIAL; FIO2 21 %; NUMBER OF ARTERIAL PUNCTURES 1; STAT NO; ULNAR PULSE PRESENT
--- NOTE | 2017-02-17 12:13 | RSPPFT ---
DATE OF PROCEDURE: 02/15/17 COMMENTS: Spirometry shows FVC of 2.5 at 78% of predicted, FEV1 of 1.3 at 50%, FEV1/FVC ratio is decreased. Flow is decreased at FEF 25, FEF 50, FEF 75 and FEF 25-75. There is no significant response after bronchodilator treatment. Lung volumes show residual volume is normal. TLC is normal. Diffusion capacity is moderately decreased. Flow volume loop indicates an obstructive pattern. Room air arterial blood gases shows pH of 7.3, PCO2 of 43, PO2 of 84, BiCarb of 22 and O2 Saturation at 89%. IMPRESSION: 1. Moderately severe obstructive lung disease. 2. Mild response after bronchodilator treatment. 3. Normal lung volumes. 4. Decreased diffusion capacity. 5. Mild hypoxia on room air.
== END ==
LOC: HRSP 13:29
PROVIDERS: ATTEND Specialist
DX: J44.9 Chronic obstructive pulmonary disease, unspecified (principal)
CPT/HCPCS: 36600; 82805; 94060; 94726; 94729

== ENCOUNTER → 2017-03-02 | Outpatient (CLI) | payer OTHER ==
--- NOTE | 2017-03-02 16:08 | RADRPT ---
EXAM DATE/TIME: 03/02/2017 13:51 [facility] COMPARISON: No previous studies available for comparison. INDICATIONS : Radiculopathy with bilateral upper extremity numbness and tingling and right upper extremity weakness .. Occipital and neck pain. MEDICAL HISTORY : Hypertension. Chronic obstructive pulmonary disease. Hypercholesterolemia. Seizure. SURGICAL HISTORY : Fusion, lumbar. Hysterectomy. Tonsillectomy. EGD with dilitation. ENCOUNTER: Initial ACUITY: 1 day PAIN SCORE: 10/10 LOCATION: neck TECHNIQUE: Multiplanar, multisequence MRI examination of the cervical spine was performed. FINDINGS: There is normal alignment of the vertebral bodies of the cervical spine preservation of vertebral bod y height. Cervical cord has normal signal characteristics. No evidence of cord compression. Posteri or fossa structures are intact and the cerebellar tonsils are in orthotopic position. The atlantoaxi al joint is intact. C2-C3: The thecal sac has a normal configuration. There is no evidence of disc herniation or spinal canal s tenosis. The neural foramina are patent bilaterally. C3-C4: Left parasagittal bulging of the disc flattens the ventral margin of thecal sac and extends into the neural foramen. There is also moderate severity left-sided bony neural foraminal stenosis. C4-C5: Small central protrusion of the disc measures 3 mm and causes indentation on the central thecal side but no evidence of cord compression. No lateral extension. Bony neural foramen remain patent. C5-C6: Broad-based bulging of the disc flattens the ventral margin of the thecal sac. No focal disc protrus ion seen. The bony neural foramen are patent bilaterally. C6-C7: The thecal sac has a normal configuration. There is no evidence of disc herniation or spinal canal s tenosis. The neural foramina are patent bilaterally. C7-T1: The thecal sac has a normal configuration. There is no evidence of disc herniation or spinal canal s tenosis. The neural foramina are patent bilaterally. CONCLUSION: 1. Small central disc protrusion at C4-5. 2. Disc bulging at C3-4 and C5-6. 3. Left-sided bony neural foraminal stenosis at C3-4 César Connors MD on March 02, 2017 at 16:01 Board Certified Radiologist. This report was verified electronically.
== END ==
LOC: HRAD 13:06
PROVIDERS: ATTEND Ophthalmology
DX: M54.12 Radiculopathy, cervical region (principal); R20.0 Anesthesia of skin
CPT/HCPCS: 72141

== ENCOUNTER → 2017-09-12 | Outpatient (CLI) | payer OTHER ==
[~2017-09-12] MED LIST changes: +IBUP1TAB5 PO; -IBUP400T20 PO; -OMEP20TA PO; +OMEP20TA93 PO; -PRED20 PO; +SERT-129 PO; -TOPA100T11 PO; +TOPI100 PO; +TRAZ100T10 PO; -TRAZ100T6 PO; -ZOLO50TA PO
--- NOTE | 2017-09-12 13:30 | RADRPT ---
EXAM DATE/TIME: 09/12/2017 13:07 [facility] COMPARISON: No previous studies available for comparison. INDICATIONS : Cough x 2-3 months, short of breath. MEDICAL HISTORY : Smoker.Hypertension. Chronic obstructive pulmonary disease. Hypercholesterolemia.Seizure. SURGICAL HISTORY : Fusion, lumbar. Hysterectomy. Tonsillectomy. EGD with dilitation. ENCOUNTER: Initial ACUITY: 3 months PAIN SCORE: 0/10 LOCATION: chest FINDINGS: PA and lateral views of the chest demonstrate the lungs to be symmetrically aerated without evidence of mass, infiltrate or effusion. The cardiomediastinal contours are unremarkable. Osseous structure s are intact. CONCLUSION: 1. No acute cardiopulmonary disease. Phoenix Armendariz MD on September 12, 2017 at 13:28 Board Certified Radiologist. This report was verified electronically.
== END ==
LOC: HRAD 12:45
PROVIDERS: ATTEND Specialist
DX: J44.9 Chronic obstructive pulmonary disease, unspecified (principal)
CPT/HCPCS: 71046